=== PATIENT | male | born 1950 | race Caucasian/White ===

== ENCOUNTER → 2018-03-29 14:22 | Outpatient (POV) | payer MEDICARE, SELFPAY | PROVIDERS: Visit Provider Physician Assistant | DX: Z00.00 Encounter for general adult medical examination without abnormal findings (principal) ==

== ENCOUNTER → 2018-08-17 11:12 | Outpatient (POV) | payer MEDICARE, SELFPAY | PROVIDERS: Visit Provider Dermatology | DX: Z00.00 Encounter for general adult medical examination without abnormal findings (principal) ==

== ENCOUNTER → 2019-04-01 11:03 | Outpatient (CLI) | payer MEDICARE, SELFPAY ==
--- NOTE | 2019-04-01 11:12 | XR_ITS ---
XR chest 2V HISTORY: ITS.REASON: cough ORDERING PHYSICIAN: Christos Martinez APRN PATIENT AGE: 68 years COMPARISON: 10/27/2018 FINDINGS: The cardiomediastinal silhouette and pulmonary vascularity are within normal limits. Chronic interstitial changes are present as before. No lobar consolidation or collapse. No acute bony anomalies. There is a vague left perihilar nodular opacity at [address] for follow-up evaluation IMPRESSION: 1. Possible left perihilar nodule. Consider CT for further evaluation. 2. Chronic interstitial changes as before
[2019-04-01 11:26] LABS: Basophils # 0.1 K/mm3 (0-0.2); Basophils % 1.1 % (0.1-2.0); Eosinophils # 0.3 K/mm3 (0.0-0.4); Eosinophils % 3.6 % (0.1-12.0); Hematocrit 48.3 % (42.0-52.0); Hemoglobin 15.2 g/dL (14.1-18.0); Lymphocytes # 2.9 K/mm3 (0.7-4.5); Lymphocytes % 30.1 % (10-50); Mean Corpuscular HGB Conc 31.5 g/dL (31.8-35.4); Mean Corpuscular Hemoglobin 29.7 pg (27.0-31.2); Mean Corpuscular Volume 94.1 fl (80-94); Mean Platelet Volume 7.2 fl (7.4-10.4); Monocytes # 0.7 K/mm3 (0.1-1.0); Monocytes % 7.6 % (1.7-9.3); Neutrophils # 5.5 K/mm3 (1.8-7.8); Neutrophils % 57.7 % (37.0-80.0); Platelet Count 319 K/mm3 (142-424); Red Blood Count 5.13 M/mm3 (4.60-6.20); Red Cell Distribution Width 13.8 % (11.5-17.5); White Blood Count 9.6 K/mm3 (4.8-10.8)
[2019-04-01 14:16] LABS: Alanine Aminotransferase 26 U/L (12-78); Albumin Level 3.6 gm/dL (3.4-5.0); Albumin/Globulin Ratio 1.1 (1.1-1.8); Alkaline Phosphatase 107 U/L (46-116); Aspartate Amino Transferase 18 U/L (15-37); Bilirubin,Total 0.4 mg/dL (0.2-1.0); Blood Urea Nitrogen 15 mg/dL (7-18); Calcium 9.2 mg/dL (8.5-10.1); Carbon Dioxide 27 mmol/L (21.0-32.0); Chloride 100 mmol/L (98-107); Chol/HDL Ratio 4.6 (1-3.5); Cholesterol 196 mg/dL (140-200); Creatinine,Serum 1.06 mg/dL (0.70-1.30); Estimated Glomerular Filt Rate 70 ml/min (>60); GFR (African American) 85 ML/MIN (>60); Globulin 3.4 gm/dl (1.3-3.2); Glucose 102 mg/dL (74-106); HDL Cholesterol 43 mg/dL (27-67); LDL Cholesterol 137 mg/dL (0-130); Sodium 137 mmol/L (136-145); Thyroid Stimulating Hormone 13.13 uIU/ml (0.358-3.740); Triglycerides 80 mg/dL (30-200); VLDL Cholesterol 16 mg/dL (0-40)
[2019-04-03 21:39] LABS: PSA, Free 0.45 ng/mL; Prostate Specific Ag 1.9 ng/mL (0.0-4.0)
[2019-04-05 22:07] LABS: 1,25-Dihydroxy, Vitamin D-2 <10 pg/mL (.)
[2019-04-06 17:37] LABS: 1,25 Dihydroxy Vitamin D 15 pg/mL (.); 1,25-Dihydroxy, Vitamin D-3 15 pg/mL (.)
== END ==
PROVIDERS: Visit Provider Nurse Practitioner Family
DX: R53.83 Other fatigue (principal); E03.9 Hypothyroidism, unspecified; R09.89 Other specified symptoms and signs involving the circulatory and respiratory systems; Z86.39 Personal history of other endocrine, nutritional and metabolic disease
CPT/HCPCS: 36415; 71046; 80053; 80061; 82652; 84153; 84154; 84436; 84443; 85025

== ENCOUNTER → 2019-04-06 07:48 | Outpatient (CLI) | payer MEDICARE, SELFPAY ==
--- NOTE | 2019-04-06 07:54 | CT_ITS ---
CT chest wo con HISTORY: ITS.REASON: Abnormal CXR ORDERING PHYSICIAN: Christos Martinez APRN PATIENT AGE: 68 years COMPARISON: 04/01/2019. Technique: Axial images obtained. Sagittal, and coronal reformatted images are also generated and reviewed. All CT scans at the facility use one or more dose reduction, viz: automated exposure control, ma/kV adjustment per patient size (including targeted exams where dose is matched to indication, i.e. head), or iterative reconstruction technique. FINDINGS: Airways are patent without pleural effusion or pneumothorax. There are moderate lucent changes throughout the lung villalba bilaterally with areas of bleb formation especially in both upper lobes as well as in the periphery of the left upper lobe and posterior base of the right upper lobe adjacent to the major fissure. There is associated interstitial prominence which is diffuse and bilaterally present. Superior segment left lower lobe shows a 10 mm noncalcified nodule. Image #60 shows a 6.4 mm subpleural lateral segment right middle lobe noncalcified nodule. Image #43 shows a left upper lobe somewhat linear 7.5 mm noncalcified density. There are a few strands of increased density in the posterior right apex. There is a right apical benign calcified granuloma. There is slight prominence of the anterior pericardium likely pericardial thickening. Heart size is normal. There are aortic arch and coronary artery calcified plaques. There are some calcified and noncalcified mediastinal lymph nodes and the noncalcified lymph nodes are small less than 10 mm in short axis diameter. There are some fatty benign appearing axillary lymph nodes bilaterally. Upper abdomen shows a partially visualized 2.6 cm hypodense focus in the right renal sinus. This is not completely imaged. IMPRESSION: Multiple noncalcified nodular densities, largest in the left lower lobe is 10 mm. Biopsy could be considered although there is a high risk for pneumothorax. Therefore consider either short-term 3 month follow-up CT of the chest or preferably a PET/CT scan. COPD with nonspecific interstitial prominence likely fibrosis. Posterior right apical linear scar or atelectasis. Partially visualized nonspecific right renal lesion, indeterminate although likely a cyst.
== END ==
PROVIDERS: PCP Nurse Practitioner Family; Visit Provider Nurse Practitioner Family
DX: R93.89 Abnormal findings on diagnostic imaging of other specified body structures (principal)
CPT/HCPCS: 71250

== ENCOUNTER → 2019-05-04 10:58 | Outpatient (CLI) | payer MEDICARE, SELFPAY ==
[2019-05-04 12:20] VITALS: PULSE 50; PULSE 56
== END ==
PROVIDERS: PCP Emergency Medicine; Visit Provider Internal Medicine Pulmonary Disease
DX: R91.8 Other nonspecific abnormal finding of lung field (principal); J43.9 Emphysema, unspecified; Z87.891 Personal history of nicotine dependence
CPT/HCPCS: 94060; 94640; 94726; 94729

== ENCOUNTER → 2019-08-23 10:01 | Outpatient (POV) | payer MEDICARE, SELFPAY | PROVIDERS: PCP Dermatology; Visit Provider Dermatology | DX: Z00.00 Encounter for general adult medical examination without abnormal findings (principal) ==

== ENCOUNTER → 2020-03-12 15:02 | Outpatient (CLI) | payer MEDICARE, SELFPAY ==
[2020-03-12 20:49] LABS: Coronavirus 19 IgG Antibody Negative (Negative); Coronavirus 19 IgM Antibody Negative (Negative)
== END ==
PROVIDERS: Visit Provider Otolaryngology
DX: R05 Cough (principal); Z01.84 Encounter for antibody response examination
CPT/HCPCS: 36415; 86328

== ENCOUNTER → 2020-03-26 14:29 | Outpatient (CLI) | payer MEDICARE, SELFPAY ==
--- NOTE | 2020-03-26 14:30 | CT_ITS ---
PROCEDURE: CT SINUS WO CON CLINICAL HISTORY: sinusitis COMPARISON: No exams were available for comparison TECHNIQUE: Axial images obtained with sagittal and coronal reformats. All CT scans at the facility use one or more dose reduction, viz: automated exposure control, ma/kV adjustment per patient size (including targeted exams where dose is matched to indication, i.e. head), or iterative reconstruction technique. FINDINGS: Frontal sinus is unremarkable. There is mild mucosal thickening of the ethmoid sinuses. Minimal mucosal thickening is present in the floor of the maxillary sinuses. No sinus air-fluid level or soft tissue mass. Sphenoid sinus has an unremarkable appearance. There is mild opacification involving the inferior aspect of the mastoid sinuses on both sides. The orbits have an unremarkable appearance. No significant nasal septal deviation. Ostiomeatal units are patent. The IMPRESSION: No evidence of acute sinusitis. There is minimal mucosal thickening of the ethmoid sinuses and minimal opacification of the mastoid sinuses. Dictated by: Bj Swann MD 03/27/2020 12:36 Electronically signed by Bj Swann MD in [facility] 03/27/2020 12:36
== END ==
PROVIDERS: PCP Emergency Medicine; Visit Provider Otolaryngology
DX: J32.0 Chronic maxillary sinusitis (principal); R42 Dizziness and giddiness
CPT/HCPCS: 70486

== ENCOUNTER → 2020-04-30 14:28 | Outpatient (CLI) | payer MEDICARE, SELFPAY ==
[2020-04-30 16:51] LABS: Coronavirus 19 IgG Antibody Negative (Negative); Coronavirus 19 IgM Antibody Negative (Negative)
== END ==
PROVIDERS: Visit Provider Otolaryngology
DX: R09.82 Postnasal drip (principal); Z20.828 Contact with and (suspected) exposure to other viral communicable diseases
CPT/HCPCS: 36415; 86328

== ENCOUNTER → 2020-06-07 14:22 | Outpatient (CLI) | payer MEDICARE, SELFPAY ==
--- NOTE | 2020-06-07 14:25 | CT_ITS ---
PROCEDURE: CT CHEST WO CON CLINICAL INDICATION: F/U LUNG NODULES Follow up, lung nodules Prior 04/06/19 COMPARISON: CT CHESTWO CT chest wo con from 04/06/2019 TECHNIQUE: Axial images obtained with sagittal and coronal reformats. All CT scans at the facility use one or more dose reduction, viz: automated exposure control, ma/kV adjustment per patient size (including targeted exams where dose is matched to indication, i.e. head), or iterative reconstruction technique. FINDINGS: HEART AND MEDIASTINAL STRUCTURES: Calcified nodes are present in the mediastinum. There are noncalcified nodes also present with which are less than 1 cm short axis. There are coronary artery calcifications. LUNGS AND PLEURAL SPACES: Centrilobular emphysema with changes of COPD. Scattered areas of scarring. There are scattered subpleural and parenchymal nodular opacities as previously described. These appear stable. There is mild prominence of the right hilum suggesting some mild adenopathy probably not significantly changed somewhat difficult to evaluate without IV contrast. Noncalcified 10 mm nodules present in the superior segment left lower lobe and is unchanged. No change 6 mm subpleural nodule right middle lobe. No change fissural nodule in the right minor fissure at 9 mm. No new nodular opacities apparent. There are some areas of pulmonary fibrosis noted. BONY STRUCTURES: No acute bony abnormalities apparent. UPPER ABDOMEN: Unremarkable. ADDITIONAL FINDINGS: Gynecomastia IMPRESSION: Stable CT appearance of the chest. No change in the noncalcified nodular lesions, COPD, centrilobular emphysema with scattered areas of scarring and mild prominence of the right hilum. Dictated by: Bj Swann MD 06/08/2020 08:16 Bj Swann MD in [facility] 06/08/2020 08:16
== END ==
PROVIDERS: PCP Emergency Medicine; Visit Provider Internal Medicine Pulmonary Disease
DX: R91.1 Solitary pulmonary nodule (principal)
CPT/HCPCS: 71250

== ENCOUNTER → 2020-07-24 08:58 | Outpatient (POV) | payer MEDICARE, SELFPAY | PROVIDERS: Visit Provider Dermatology | DX: Z00.00 Encounter for general adult medical examination without abnormal findings (principal) ==

== ENCOUNTER 2020-07-24 09:27 | Emergency (ER) | payer MEDICARE, SELFPAY ==
[2020-07-24 09:45] VITALS: BP 144/74; PULSE 66; RESP 18; TEMP 36.6; O2SAT 98; BMI 26.8
[2020-07-24 09:57] VITALS: BP 144/74; PULSE 66; RESP 18; TEMP 36.6; O2SAT 98
== END 2020-07-24 10:02 | disposition home or self-care (01) ==
LOC: UTC 09:28
PROVIDERS: Emergency Provider Nurse Practitioner; PCP Nurse Practitioner Family
DX: Z23 Encounter for immunization (principal)
CPT/HCPCS: 90471

== ENCOUNTER → 2020-12-26 17:14 | Outpatient (CLI) | payer MEDICARE, SELFPAY ==
[2020-12-26 18:07] LABS: Basophils # 0.1 K/mm3 (0-0.2); Eosinophils # 0.3 K/mm3 (0.0-0.4); Eosinophils % 3.1 % (0.1-12.0); Hematocrit 46.1 % (42.0-52.0); Hemoglobin 14.9 g/dL (14.1-18.0); Lymphocytes # 2.9 K/mm3 (0.7-4.5); Lymphocytes % 30.2 % (10-50); Mean Corpuscular HGB Conc 32.3 g/dL (31.8-35.4); Mean Corpuscular Hemoglobin 30.8 pg (27.0-31.2); Mean Corpuscular Volume 95.3 fl (80-94); Monocytes # 0.7 K/mm3 (0.1-1.0); Monocytes % 7.2 % (1.7-9.3); Neutrophils # 5.6 K/mm3 (1.8-7.8); Neutrophils % 58.5 % (37.0-80.0); Platelet Count 381 K/mm3 (142-424); Red Blood Count 4.84 M/mm3 (4.60-6.20); White Blood Count 9.5 K/mm3 (4.8-10.8)
[2020-12-26 18:24] LABS: Chloride 102 mmol/L (98-107)
[2020-12-26 18:25] LABS: Potassium 4.8 mmoL/L (3.5-5.1); Sodium 135 mmol/L (136-145)
[2020-12-26 18:27] LABS: Alanine Aminotransferase 17 U/L (12-78); Alkaline Phosphatase 113 U/L (38-126); Anion Gap 14.8 mEq/L (5-15); Aspartate Amino Transferase 27 U/L (17-59); Bilirubin,Total 0.6 mg/dl (0.2-1.3); Blood Urea Nitrogen 15 mg/dl (9-20); Carbon Dioxide 23 mmol/L (22.0-30.0); Cholesterol 233 mg/dl (140-200); Estimated Glomerular Filt Rate 74 ml/min (>60); GFR (African American) 90 ML/MIN (>60); Triglycerides 98 mg/dl (30-150); VLDL Cholesterol 20 mg/dL (0-40)
[2020-12-26 18:28] LABS: Albumin Level 4.4 g/dl (3.5-5.0); Albumin/Globulin Ratio 1.3 (1.1-1.8); Calcium 9.9 mg/dl (8.4-10.2); Chol/HDL Ratio 4.1 (1-3.5); Globulin 3.5 g/dL (1.3-3.2); Glucose 109 mg/dl (74-100); HDL Cholesterol 57 mg/dl (40-60); Total Protein,Serum 7.9 g/dl (6.3-8.2)
[2020-12-26 18:45] LABS: 25-OH Vitamin D, Total 62.7 ng/mL (30-100); Free T4 (Free Thyroxine) 1.63 ng/dl (0.78-2.19)
[2020-12-26 19:43] LABS: Direct LDL Cholesterol 160.49 mg/dL (100-129)
[2020-12-26 20:22] LABS: Vitamin B12 283 pg/mL (239-931)
[2020-12-28 13:00] LABS: Prostate Specific Ag 2.2 ng/mL (0.0-4.0)
== END ==
PROVIDERS: Visit Provider Nurse Practitioner Family
DX: Z00.00 Encounter for general adult medical examination without abnormal findings; E03.9 Hypothyroidism, unspecified; J32.9 Chronic sinusitis, unspecified; E55.9 Vitamin D deficiency, unspecified
CPT/HCPCS: 80053; 80061; 82306; 82607; 84153; 84154; 84439; 84443; 85025

== ENCOUNTER → 2021-02-27 13:39 | Outpatient (CLI) | payer MEDICARE, SELFPAY ==
[2021-02-27 13:57] LABS: Anion Gap 13.6 mEq/L (5-15); Blood Urea Nitrogen 12 mg/dl (9-20); Calcium 9.1 mg/dl (8.4-10.2); Carbon Dioxide 25 mmol/L (22.0-30.0); Chloride 99 mmol/L (98-107); Estimated Glomerular Filt Rate 74 ml/min (>60); GFR (African American) 90 ML/MIN (>60); Glucose 100 mg/dl (74-100); Potassium 4.6 mmoL/L (3.5-5.1); Sodium 133 mmol/L (136-145)
[2021-02-27 14:15] LABS: T4 (Thyroxine) 11.3 ug/dl (5.53-11.0)
[2021-02-27 14:28] LABS: Thyroid Stimulating Hormone 7.45 uIU/mL (0.465-4.68)
== END ==
PROVIDERS: Visit Provider Nurse Practitioner Family
DX: E03.9 Hypothyroidism, unspecified (principal)
CPT/HCPCS: 80048; 84436; 84443

== ENCOUNTER → 2021-06-10 15:25 | Outpatient (CLI) | payer MEDICARE, SELFPAY ==
--- NOTE | 2021-06-10 15:26 | CT_ITS ---
PROCEDURE: CT CHEST WO CON CLINICAL INDICATION: Shortness of air, productive cough COMPARISON: CT CT CHEST WO CON from 06/07/2020 TECHNIQUE: Axial images obtained with sagittal and coronal reformats. All CT scans at the facility use one or more dose reduction, viz: automated exposure control, ma/kV adjustment per patient size (including targeted exams where dose is matched to indication, i.e. head), or iterative reconstruction technique. FINDINGS: Scattered small nodes are present in the mediastinum some of which are calcified. These do not appear significantly changed. Calcified hilar nodes are also present. Coronary artery calcifications are noted. Small nodes are present in the axilla unchanged. The right hilum is prominent as before not significantly changed. COPD changes with centrilobular emphysema and scattered fibrotic changes. There are bilateral stable subpleural and fissural nodules. There is a 10 mm nodule in the superior segment of the left lower lobe which is stable. There are scattered fibrotic changes. Incidental note made of gynecomastia. Degenerative changes thoracic spine. IMPRESSION: Overall stable CT appearance of the chest. Centrilobular emphysema with scattered fibrotic changes and stable subpleural and parenchymal opacities. No change in the 10 mm left upper lobe nodule. Dictated by: Bj Swann MD 06/11/2021 11:34 Bj Swann MD in [facility] 06/11/2021 11:34
== END ==
PROVIDERS: PCP Nurse Practitioner Family; Visit Provider Internal Medicine Pulmonary Disease
DX: R06.02 Shortness of breath (principal)
CPT/HCPCS: 71250

== ENCOUNTER 2021-06-14 10:49 | Emergency (ER) | payer MEDICARE, SELFPAY ==
[2021-06-14 11:50] VITALS: BP 175/81; PULSE 74; RESP 18; TEMP 36.7; O2SAT 94; BMI 27.2
--- NOTE | 2021-06-14 12:28 | HMH.EDUTC ---
[facility] [place] Clinical Impression: Contact dermatitis Qualifiers: Contact dermatitis type: unspecified Contact dermatitis trigger: unspecified trigger Qualified Code(s): L25.9 - Unspecified contact dermatitis, unspecified cause Disposition: Home, Self-Care Condition on Discharge: Good Instructions: Contact Dermatitis, DI for Contact Dermatitis Additional Instructions: Try to avoid contact with the offending substance. Don't start the oral steroids until tomorrow. Don't put the topical steroids (triamcinolone) on your face or your groin. Take the diphenhydramine (benedryl) for itching. Don't drive or operate heavy machinery after taking it. Follow up with your regular doctor. GO TO THE ER FOR ANY WORSENING SYMPTOMS OR CONCERNS Prescriptions: diphenhydrAMINE HCL [Diphenhydramine HCl] 25 mg PO Q6HP PRN #30 cap PRN Reason: Itching Transmission Status: Received by [facility] methylPREDNISolone [Medrol] 4 mg PO DIRECTED 6 Days #21 packet Transmission Status: Received by [facility] Triamcinolone Acetonide 1 applicatio TP TIDP PRN 7 Days #1 gm PRN Reason: Itching Transmission Status: Received by [facility] Referrals: Christos Martinez APRN [Primary Care Provider] - Time of Disposition: 12:55 Medical Decision Making - Medical Records Medical records reviewed: No: I reviewed the patient's medical records. - [place] Inquiry Pt receiving controlled substance: No Vital Signs: 06/14/21 11:50 06/14/21 12:39 Temperature 98.1 F 98.1 F Temperature Source Oral Pulse Rate 74 Pulse Rate [Left Radial] 74 Respiratory Rate 18 18 Blood Pressure 175/81 H Blood Pressure [Left Arm] 175/81 H Blood Pressure Mean [Left Arm] 112 Blood Pressure Source [Left Arm] Automatic Cuff Blood Pressure Position [Left Arm] Sitting 02 Sat by Pulse Oximetry 94 L Oxygen Delivery Method Room Air Orders (Tests/Meds): ED MEDICATIONS Discontinued Medications Generic Name Dose Route Start Last Admin Trade Name Freq PRN Reason Stop Dose Admin Methylprednisolone Sodium Succinate 125 mg 06/14/21 12:33 06/14/21 12:37 Methylprednisolone Sod Succ 125mg Vial IM 06/14/21 12:34 125 mg ONCE ONE Administration [facility] [place] - General Stated complaint: rash all over body Time Seen by Provider: 06/14/21 12:29 Mode of Arrival: Ambulatory Source of Information: Patient Limitations: No Limitations Description of Symptoms (Recalled from Triage Doc. by RN): c/o body rash HEENT Symptoms (Recalled from RN notes): No Resp Symptoms (Recalled from RN notes): No Skin Symptoms (Recalled from RN notes): Yes (rash) MS Symptoms (Recalled from RN notes): No Functional Status (Recalled from RN notes): n/a - History of Present Illness Provider Complaint: He states that since last night he has had a rash on his back, lower abdomen, and back. - Related Data Home Medications Medication Instructions Recorded Confirmed cholecalciferol (vitamin D3) 25 1,000 unit PO DAILY 03/31/19 06/13/21 mcg (1,000 unit) capsule mecobalamin (vitamin B12) 1,000 2,000 mcg SUBLINGUAL DAILY tab 03/31/19 06/13/21 mcg disintegrating tablet,sublingual melatonin 10 mg capsule 10 mg PO HS PRN 06/12/20 06/13/21 Previous Rx's Medication Instructions Recorded cholecalciferol (vitamin D3) 1,250 50,000 unit PO QWEEK #5 cap 04/07/19 mcg (50,000 unit) capsule levothyroxine 112 mcg tablet See Rx Instructions .ROUTE 12/26/20 .COMPLEX #90 tab loratadine 10 mg tablet 10 mg PO DAILY 30 Days #30 tab 12/26/20 albuterol sulfate 90 mcg/actuation 1 inh INHALATION Q6H PRN 90 Days 06/13/21 aerosol inhaler #8.5 g fluticasone propionate 50 1 spray INTRANASAL DAILY 90 Days 06/13/21 mcg/actuation nasal #16 g spray,suspension tiotropium bromide 2.5 2 inh INHALATION DAILY 90 Days #4 g 06/13/21 mcg/actuation mist for inhalation Triamcinolone Acetonide 1 applicatio TP TIDP PRN 7 Days #1
[2021-06-14 12:39] VITALS: BP 175/81; PULSE 74; RESP 18; TEMP 36.7; O2SAT 94
== END 2021-06-14 13:05 | disposition home or self-care (01) ==
PROVIDERS: Emergency Provider Student in an Organized Health Care Education/Training Program; PCP Nurse Practitioner Family
DX: L25.9 Unspecified contact dermatitis, unspecified cause (principal); E03.9 Hypothyroidism, unspecified
CPT/HCPCS: G0463; 96372; 99202

== ENCOUNTER → 2021-09-16 12:47 | Outpatient (CLI) | payer MEDICARE, SELFPAY ==
[2021-09-16 13:55] VITALS: PULSE 73; PULSE 78
== END ==
PROVIDERS: PCP Nurse Practitioner Family; Visit Provider Internal Medicine Pulmonary Disease
DX: R06.09 Other forms of dyspnea (principal)
CPT/HCPCS: 94060; 94640; 94727; 94729

== ENCOUNTER → 2021-12-24 12:00 | Outpatient (CLI) | payer MEDICARE, SELFPAY ==
--- NOTE | 2021-12-24 12:07 | XR_ITS ---
FINAL REPORT CLINICAL HISTORY: Pain..no trauma FINDINGS: 2 views of the right forearm were obtained. There is no acute fracture or dislocation. There are mild degenerative changes. There is no soft tissue abnormality. IMPRESSION: No acute abnormality. Reviewed, Interpreted and Dictated by Vinicius Mcclain III, MD Transcribed by Delta Johnson Authenticated by Vinicius Mcclain III, MD on 12/24/2021 01:41:20 PM [facility]
--- NOTE | 2021-12-24 12:07 | XR_ITS ---
FINAL REPORT CLINICAL HISTORY: RFA Pain,,no trauma FINDINGS: 3 views of the right wrist were obtained. There is no acute fracture or dislocation. There are mild degenerative changes. There is no soft tissue abnormality. IMPRESSION: Mild degenerative changes. Reviewed, Interpreted and Dictated by Vinicius Mcclain III, MD Transcribed by Delta Johnson Authenticated by Vinicius Mcclain III, MD on 12/24/2021 01:41:31 PM [facility]
[2021-12-24 13:21] LABS: Basophils # 0.1 K/mm3 (0-0.2); Basophils % 1.5 % (0.1-2.0); Eosinophils # 0.4 K/mm3 (0.0-0.4); Lymphocytes # 2.7 K/mm3 (0.7-4.5); Lymphocytes % 28.8 % (10-50); Mean Corpuscular HGB Conc 31.3 g/dL (31.8-35.4); Mean Corpuscular Volume 99.1 fl (80-94); Monocytes # 0.6 K/mm3 (0.1-1.0); Monocytes % 6.8 % (1.7-9.3); Neutrophils # 5.5 K/mm3 (1.8-7.8); Platelet Count 427 K/mm3 (142-424); Red Blood Count 4.85 M/mm3 (4.60-6.20); Red Cell Distribution Width 14.3 % (11.5-17.5); White Blood Count 9.3 K/mm3 (4.8-10.8)
[2021-12-24 14:01] LABS: Erythrocyte Sedimentation Rate 47 mm/hr (0-20)
[2021-12-24 14:21] LABS: Chloride 97 mmol/L (98-107); Potassium 4.9 mmoL/L (3.5-5.1); Sodium 135 mmol/L (136-145)
[2021-12-24 14:23] LABS: Blood Urea Nitrogen 14 mg/dl (9-20); Estimated Glomerular Filt Rate 74 ml/min (>60); GFR (African American) 90 ML/MIN (>60)
[2021-12-24 14:24] LABS: Alanine Aminotransferase 20 U/L (12-78); Albumin Level 4.2 g/dl (3.5-5.0); Albumin/Globulin Ratio 1.4 (1.1-1.8); Alkaline Phosphatase 94 U/L (38-126); Anion Gap 12.9 mEq/L (5-15); Aspartate Amino Transferase 25 U/L (17-59); Bilirubin,Total 0.6 mg/dl (0.2-1.3); Carbon Dioxide 30 mmol/L (22.0-30.0); Globulin 2.9 g/dL (1.3-3.2); Glucose 85 mg/dl (74-100); Total Protein,Serum 7.1 g/dl (6.3-8.2)
== END ==
PROVIDERS: PCP Nurse Practitioner Family; Visit Provider Nurse Practitioner Family
DX: M25.531 Pain in right wrist (principal)
CPT/HCPCS: 73090; 73110; 80053; 84550; 85025; 85651

== ENCOUNTER → 2022-03-19 06:14 | Outpatient (CLI) | payer MEDICARE, SELFPAY ==
[2022-03-18 17:44] LABS: Basophils # 0.1 K/mm3 (0-0.2); Basophils % 1.3 % (0.1-2.0); Eosinophils # 0.3 K/mm3 (0.0-0.4); Eosinophils % 3.1 % (0.1-12.0); Hematocrit 47.3 % (42.0-52.0); Hemoglobin 15.6 g/dL (14.1-18.0); Lymphocytes # 2.3 K/mm3 (0.7-4.5); Mean Corpuscular Hemoglobin 31.7 pg (27.0-31.2); Mean Corpuscular Volume 96.3 fl (80-94); Monocytes # 0.8 K/mm3 (0.1-1.0); Monocytes % 7.7 % (1.7-9.3); Neutrophils # 6.4 K/mm3 (1.8-7.8); Neutrophils % 64.8 % (37.0-80.0); Platelet Count 397 K/mm3 (142-424); Red Blood Count 4.91 M/mm3 (4.60-6.20); Red Cell Distribution Width 14.1 % (11.5-17.5); White Blood Count 9.9 K/mm3 (4.8-10.8)
[2022-03-18 18:06] LABS: Alanine Aminotransferase 17 U/L (12-78); Albumin Level 4.1 g/dl (3.5-5.0); Albumin/Globulin Ratio 1.2 (1.1-1.8); Alkaline Phosphatase 102 U/L (38-126); Anion Gap 12.7 mEq/L (5-15); Aspartate Amino Transferase 34 U/L (17-59); Bilirubin,Total 0.4 mg/dl (0.2-1.3); Blood Urea Nitrogen 13 mg/dl (9-20); Calcium 9.3 mg/dl (8.4-10.2); Carbon Dioxide 23 mmol/L (22.0-30.0); Chloride 98 mmol/L (98-107); Estimated Glomerular Filt Rate 84 ml/min (>60); GFR (African American) 101 ML/MIN (>60); Globulin 3.4 g/dL (1.3-3.2); Glucose 107 mg/dl (74-100); Potassium 4.7 mmoL/L (3.5-5.1); Sodium 129 mmol/L (136-145); Total Protein,Serum 7.5 g/dl (6.3-8.2)
[2022-03-18 18:07] LABS: Erythrocyte Sedimentation Rate 19 mm/hr (0-20)
[2022-03-18 18:12] LABS: C-Reactive Protein 14.1 mg/L (0-4)
[2022-03-20 08:22] LABS: RA Latex Turbid. 19.9 IU/mL (<14.0)
[2022-03-20 14:34] LABS: Anti-Centromere B Antibodies <0.2 AI (0.0-0.9); Anti-DNA (DS) Ab Qn <1 IU/mL (0-9); Anti-Jo-1 <0.2 AI (0.0-0.9); Anti-Smith Antibody <0.2 AI (0.0-0.9); Antichromatin Antibodies <0.2 AI (0.0-0.9); Antiscleroderma-70 Antibodies <0.2 AI (0.0-0.9); RNP Antibodies 1.9 AI (0.0-0.9); Sjogren's Anti-SS-A <0.2 AI (0.0-0.9); Sjogren's Anti-SS-B 0.2 AI (0.0-0.9)
== END ==
PROVIDERS: PCP Nurse Practitioner Family; Visit Provider Nurse Practitioner Family
DX: R60.0 Localized edema (principal); M79.641 Pain in right hand; M79.642 Pain in left hand
CPT/HCPCS: 80053; 85025; 85651; 86140; 86225; 86235; 86431

== ENCOUNTER → 2022-06-18 14:41 | Outpatient (CLI) | payer MEDICARE, SELFPAY ==
--- NOTE | 2022-06-18 14:41 | CT_ITS ---
FINAL REPORT TECHNIQUE: Axial images were obtained from the lung apex to the mid abdomen by computed tomography. This study was performed with techniques to keep radiation doses as low as reasonably achievable (ALARA). Individualized dose reduction techniques using automated exposure control or adjustment of mA and/or kV according to the patient's size were employed. CLINICAL HISTORY: lung cancer screening, PREVIOUS SMOKER , 1 PPD FOR 50 YEARS, QUIT 5 YEARS AGO COMPARISON: 06/10/2021 and 06/07/2020 FINDINGS: CHEST CT LOW DOSE CTDI vol (mGy): 2.90 DLP (mGy-cm): 111.25 There are small mediastinal nodes. There are calcified mediastinal and right hilar nodes. There is diffuse coronary artery calcification. Multiple borderline size axillary nodes are identified. The heart is normal in size. There is no pericardial or pleural effusion. There is severe emphysema. Moderate scarring is identified. There is a 10 mm nodule in the superior segment of the left lower lobe, stable. There is a pleural base nodule in the right middle lobe measuring 8 mm, previously measured 8 mm. Several other smaller nodules are seen, stable. No new mass or nodule is identified Limited images of the upper abdomen are unremarkable. IMPRESSION: Stable multiple pulmonary nodules. Severe emphysema. Lung RADS category 1. Recommend 12 month follow-up low-dose chest CT. Reviewed, Interpreted and Dictated by Vinciius Mcclain III, MD Transcribed by Merissa Centeno Authenticated and [facility]
== END ==
PROVIDERS: PCP Nurse Practitioner Family; Visit Provider Internal Medicine Pulmonary Disease
DX: Z87.891 Personal history of nicotine dependence (principal); Z12.2 Encounter for screening for malignant neoplasm of respiratory organs
CPT/HCPCS: 71271

== ENCOUNTER → 2022-07-17 09:21 | Outpatient (CLI) | payer MEDICARE, SELFPAY ==
[2022-07-17 10:10] LABS: Microscopic, Urine URINE MICROSCOPIC (MICROSCOPIC)
[2022-07-17 10:42] LABS: Appearance,Urine CLEAR (Clear); Bilirubin,Urine Negative (Negative); Blood, Urine Negative (Negative); Color,Urine YELLOW (Yellow); Glucose,Urine (UA) Negative (Negative); Ketones,Urine Negative (Negative); Leukocyte Esterase,Urine Negative (Negative); Nitrate,Urine Negative (Negative); Protein,Urine Negative (Negative); Specific Gravity, Urine <= 1.005 (1.005-1.030); Urobilinogen,Urine 0.2 EU/dl (0.2)
[2022-07-17 10:46] LABS: Basophils # 0.2 K/mm3 (0-0.2); Eosinophils # 0.3 K/mm3 (0.0-0.4); Eosinophils % 3.5 % (0.1-12.0); Hematocrit 48.1 % (42.0-52.0); Hemoglobin 15.5 g/dL (14.1-18.0); Lymphocytes # 1.4 K/mm3 (0.7-4.5); Lymphocytes % 19.2 % (10-50); Mean Corpuscular HGB Conc 32.2 g/dL (31.8-35.4); Mean Corpuscular Hemoglobin 30.6 pg (27.0-31.2); Mean Platelet Volume 7.7 fl (7.4-10.4); Monocytes # 0.5 K/mm3 (0.1-1.0); Monocytes % 6.6 % (1.7-9.3); Neutrophils # 5.1 K/mm3 (1.8-7.8); Neutrophils % 68.6 % (37.0-80.0); Platelet Count 363 K/mm3 (142-424); Red Blood Count 5.07 M/mm3 (4.60-6.20); White Blood Count 7.5 K/mm3 (4.8-10.8)
[2022-07-17 11:00] LABS: Creatinine,Urine Random 19 mg/dL (Not Estab.)
[2022-07-17 11:13] LABS: Alanine Aminotransferase 25 U/L (12-78); Alkaline Phosphatase 137 U/L (38-126); Aspartate Amino Transferase 40 U/L (17-59); Bilirubin,Direct 0.1 mg/dl (0.0-0.4); Bilirubin,Indirect 0.1 mg/dL (0.0-0.9); Bilirubin,Total 0.2 mg/dl (0.2-1.3); Bilirubin,Unconjugated 0.1 mg/dL (0.0-1.1); Estimated Glomerular Filt Rate 83 ml/min (>60); GFR (African American) 101 ML/MIN (>60)
[2022-07-17 11:14] LABS: Albumin Level 4.1 g/dl (3.5-5.0); Total Protein,Serum 7.5 g/dl (6.3-8.2)
[2022-07-17 11:19] LABS: C-Reactive Protein 14.7 mg/L (0-4)
[2022-07-17 11:51] LABS: Squamous Epithelial Cell,Urine Occasional #/hpf (0-5)
[2022-07-17 11:53] LABS: Erythrocyte Sedimentation Rate 14 mm/hr (0-20)
[2022-07-18 08:16] LABS: Complement C3 135 mg/dL (82-167); RA Latex Turbid. 35.1 IU/mL (<14.0)
[2022-07-18 17:12] LABS: Anti-DNA (DS) Ab Qn <1 IU/mL (0-9); Antiscleroderma-70 Antibodies <0.2 AI (0.0-0.9); Smith/RNP Antibodies <0.2 AI (0.0-0.9)
[2022-07-19 00:07] LABS: Anti-Cyclic Citrullinated Pept >250 units (0-19)
[2022-07-19 20:08] LABS: QuantiFERON-TB Gold Plus Negative (Negative)
[2022-08-07 12:43] LABS: Hep A Ab, IgM NEGATIVE; Hepatitis B Core Antibody IgM NEGATIVE; Hepatitis B Surface Antigen NEGATIVE; Hepatitis C Antibody <0.1
[2022-08-07 12:46] LABS: Antinuclear Antibodies, IFA POSITIVE
== END ==
PROVIDERS: PCP Nurse Practitioner Family; Visit Provider Physician Assistant
DX: R94.5 Abnormal results of liver function studies (principal); Z79.899 Other long term (current) drug therapy
CPT/HCPCS: 36415; 80074; 80076; 81001; 82565; 82570; 84155; 85025; 85651; 86038; 86140; 86161; 86200; 86225; 86235; 86431; 86480

== ENCOUNTER → 2022-09-16 09:48 | Outpatient (POV) | payer MEDICARE, SELFPAY | PROVIDERS: Visit Provider Dermatology | DX: Z00.00 Encounter for general adult medical examination without abnormal findings (principal) ==

== ENCOUNTER 2022-10-30 09:43 | Outpatient (CLI) | payer MEDICARE, SELFPAY ==
[2022-10-30] VITALS (17 sets, daily range): BP systolic 129–179; BP diastolic 54–85; PULSE 65–76; RESP 18; TEMP 36.6; O2SAT 95; BMI 26.8
[2022-10-30 10:10] LABS: Basophils # 0.1 K/mm3 (0-0.2); Basophils % 1.5 % (0.1-2.0); Eosinophils # 0.5 K/mm3 (0.0-0.4); Eosinophils % 4.9 % (0.1-12.0); Hematocrit 43.9 % (42.0-52.0); Hemoglobin 14.1 g/dL (14.1-18.0); Lymphocytes # 2.6 K/mm3 (0.7-4.5); Lymphocytes % 27.5 % (10-50); Mean Corpuscular HGB Conc 32.1 g/dL (31.8-35.4); Mean Corpuscular Hemoglobin 30.1 pg (27.0-31.2); Mean Corpuscular Volume 93.8 fl (80-94); Mean Platelet Volume 7.2 fl (7.4-10.4); Monocytes # 0.8 K/mm3 (0.1-1.0); Monocytes % 8.1 % (1.7-9.3); Neutrophils # 5.5 K/mm3 (1.8-7.8); Neutrophils % 57.9 % (37.0-80.0); Platelet Count 431 K/mm3 (142-424); Red Blood Count 4.68 M/mm3 (4.60-6.20); Red Cell Distribution Width 14.2 % (11.5-17.5); White Blood Count 9.4 K/mm3 (4.8-10.8)
== END 2022-10-30 15:00 | disposition home or self-care (01) ==
LOC: INF 09:45
PROVIDERS: PCP Nurse Practitioner Family; Visit Provider Physician Assistant
DX: M05.79 Rheumatoid arthritis with rheumatoid factor of multiple sites without organ or systems involvement
CPT/HCPCS: 85025; 96413; 96415; J9312

== ENCOUNTER 2022-11-14 09:39 | Outpatient (CLI) | payer MEDICARE, SELFPAY ==
[2022-11-14] VITALS (14 sets, daily range): BP systolic 156–187; BP diastolic 66–90; PULSE 63–76; RESP 18; TEMP 36.3–36.6; O2SAT 99–100; BMI 26.8
[2022-11-14 10:02] LABS: Basophils # 0.1 K/mm3 (0-0.2); Basophils % 1.5 % (0.1-2.0); Eosinophils # 0.4 K/mm3 (0.0-0.4); Eosinophils % 5.6 % (0.1-12.0); Hematocrit 45.1 % (42.0-52.0); Hemoglobin 14.7 g/dL (14.1-18.0); Lymphocytes # 2.1 K/mm3 (0.7-4.5); Lymphocytes % 26.7 % (10-50); Mean Corpuscular HGB Conc 32.5 g/dL (31.8-35.4); Mean Corpuscular Hemoglobin 30.3 pg (27.0-31.2); Mean Corpuscular Volume 93.2 fl (80-94); Mean Platelet Volume 6.6 fl (7.4-10.4); Monocytes # 0.6 K/mm3 (0.1-1.0); Monocytes % 8.2 % (1.7-9.3); Neutrophils # 4.5 K/mm3 (1.8-7.8); Neutrophils % 57.9 % (37.0-80.0); Platelet Count 333 K/mm3 (142-424); Red Blood Count 4.84 M/mm3 (4.60-6.20); Red Cell Distribution Width 13.8 % (11.5-17.5); White Blood Count 7.7 K/mm3 (4.8-10.8)
== END 2022-11-14 14:00 | disposition home or self-care (01) ==
LOC: INF 09:39
PROVIDERS: PCP Nurse Practitioner Family; Visit Provider Physician Assistant
DX: Z51.12 Encounter for antineoplastic immunotherapy (principal); M05.79 Rheumatoid arthritis with rheumatoid factor of multiple sites without organ or systems involvement
CPT/HCPCS: 85025; 96413; 96415; J9312

== ENCOUNTER → 2023-02-10 09:41 | Outpatient (CLI) | payer MEDICARE, SELFPAY ==
[2023-02-10 10:15] VITALS: PULSE 63; PULSE 70
== END ==
PROVIDERS: PCP Nurse Practitioner Family; Visit Provider Internal Medicine Pulmonary Disease
DX: R06.02 Shortness of breath (principal)
CPT/HCPCS: 94060; 94640

== ENCOUNTER 2023-05-21 08:46 | Outpatient (CLI) | payer MEDICARE, SELFPAY ==
[2023-05-21] VITALS (11 sets, daily range): BP systolic 132–155; BP diastolic 67–82; PULSE 63–73; RESP 18; TEMP 36.7; O2SAT 93; BMI 25.5
[2023-05-21 09:19] LABS: Basophils # 0.1 K/mm3 (0-0.2); Basophils % 1.2 % (0.1-2.0); Eosinophils # 0.4 K/mm3 (0.0-0.4); Eosinophils % 5.8 % (0.1-12.0); Hematocrit 46.9 % (42.0-52.0); Hemoglobin 14.6 g/dL (14.1-18.0); Lymphocytes % 32.4 % (10-50); Mean Corpuscular HGB Conc 31.2 g/dL (31.8-35.4); Mean Corpuscular Hemoglobin 29.7 pg (27.0-31.2); Mean Corpuscular Volume 95.1 fl (80-94); Monocytes # 0.4 K/mm3 (0.1-1.0); Monocytes % 6.7 % (1.7-9.3); Neutrophils # 3.4 K/mm3 (1.8-7.8); Neutrophils % 53.9 % (37.0-80.0); Platelet Count 283 K/mm3 (142-424); Red Blood Count 4.93 M/mm3 (4.60-6.20); Red Cell Distribution Width 14.2 % (11.5-17.5); White Blood Count 6.2 K/mm3 (4.8-10.8)
== END 2023-05-21 13:20 | disposition home or self-care (01) ==
LOC: INF 08:48
PROVIDERS: PCP Nurse Practitioner Family; Visit Provider Physician Assistant
DX: M05.79 Rheumatoid arthritis with rheumatoid factor of multiple sites without organ or systems involvement (principal)
CPT/HCPCS: 85025; 96413; 96415; J9312

== ENCOUNTER 2023-06-03 09:06 | Outpatient (CLI) | payer MEDICARE, SELFPAY ==
[2023-06-03] VITALS (8 sets, daily range): BP systolic 119–178; BP diastolic 48–75; PULSE 59–78; RESP 18; O2SAT 93; BMI 26.7
[2023-06-03 09:33] LABS: Basophils # 0.1 K/mm3 (0-0.2); Basophils % 0.8 % (0.1-2.0); Eosinophils # 0.4 K/mm3 (0.0-0.4); Eosinophils % 4.1 % (0.1-12.0); Hematocrit 45.8 % (42.0-52.0); Lymphocytes # 2.2 K/mm3 (0.7-4.5); Lymphocytes % 25.4 % (10-50); Mean Corpuscular HGB Conc 32.8 g/dL (31.8-35.4); Mean Corpuscular Hemoglobin 30.4 pg (27.0-31.2); Mean Corpuscular Volume 92.6 fl (80-94); Mean Platelet Volume 7.7 fl (7.4-10.4); Monocytes # 0.8 K/mm3 (0.1-1.0); Monocytes % 8.8 % (1.7-9.3); Neutrophils # 5.2 K/mm3 (1.8-7.8); Platelet Count 324 K/mm3 (142-424); Red Blood Count 4.94 M/mm3 (4.60-6.20); Red Cell Distribution Width 13.9 % (11.5-17.5); White Blood Count 8.5 K/mm3 (4.8-10.8)
== END 2023-06-03 13:41 | disposition home or self-care (01) ==
LOC: INF 09:09
PROVIDERS: PCP Nurse Practitioner Family; Visit Provider Physician Assistant
DX: M05.79 Rheumatoid arthritis with rheumatoid factor of multiple sites without organ or systems involvement (principal); Z51.12 Encounter for antineoplastic immunotherapy
CPT/HCPCS: 85025; 96413; 96415; J9312

== ENCOUNTER → 2023-09-11 14:05 | Outpatient (CLI) | payer MEDICARE, SELFPAY ==
--- NOTE | 2023-09-11 14:05 | CT_ITS ---
FINAL REPORT CLINICAL HISTORY: lung cancer screening FORMER SMOKER, QUIT 4 YEARS AGO 1PPD X50 YEARS WHEN SMOKING COMPARISON: 06/18/2022 FINDINGS: CT CHEST LOW DOSE SCREENING HISTORY: Screening exam for lung cancer. 73-year-old male, former smoker, quit 4 years ago, 50 pack year smoking history DOSE: CTDIvol: 2.9 mGy, DLP: 109.16 mGy*cm COMPARISON: 06/18/2022. TECHNIQUE: Axial CT without IV contrast administration using low dose protocol FINDINGS: Severe changes of emphysema are present, as well as mild scarring. Several calcified granulomas are identified. There is a 10 mm nodule in the superior segment of the left lower lobe, stable since the prior CT. There is another 8 mm pleural-based nodule, right middle lobe, also stable. There is an 8 mm irregular pleural-based opacity in the right upper lobe, seen best in image #23, that has increased in size since the prior examination. There is a 5 mm nodule in the right lung base, seen best on image #58, that is also larger since the prior CT. No pleural or pericardial effusion is seen . No adenopathy or mass lesion is present . IMPRESSION: 2 nodules are present which have increased in size since the prior exam. One nodule is in the right upper lobe, the other is in the right lung base. LUNG RADS CATEGORY 4B RECOMMENDATION: Recommend PET CT for further evaluation. Reviewed, Interpreted and Dictated by Vinicius Mcclain III, MD Transcribed by Flower Amaya Authenticated and [facility]
== END ==
LOC: RAD 14:05
PROVIDERS: PCP Nurse Practitioner Family; Visit Provider Nurse Practitioner Family
DX: F17.210 Nicotine dependence, cigarettes, uncomplicated (principal); R91.1 Solitary pulmonary nodule; Z12.2 Encounter for screening for malignant neoplasm of respiratory organs
CPT/HCPCS: 71271

== ENCOUNTER 2023-11-02 09:55 | Outpatient (CLI) | payer MEDICARE, SELFPAY ==
[2023-11-02 10:52] LABS: Basophils # 0.1 K/mm3 (0-0.2); Basophils % 1.4 % (0.1-2.0); Eosinophils # 0.4 K/mm3 (0.0-0.4); Eosinophils % 5.1 % (0.1-12.0); Hematocrit 50.8 % (42.0-52.0); Hemoglobin 16.5 g/dL (14.1-18.0); Lymphocytes # 2.5 K/mm3 (0.7-4.5); Lymphocytes % 33.8 % (10-50); Mean Corpuscular HGB Conc 32.6 g/dL (31.8-35.4); Mean Corpuscular Hemoglobin 30.3 pg (27.0-31.2); Mean Corpuscular Volume 93.1 fl (80-94); Mean Platelet Volume 8.2 fl (7.4-10.4); Monocytes # 0.8 K/mm3 (0.1-1.0); Monocytes % 10.3 % (1.7-9.3); Neutrophils # 3.7 K/mm3 (1.8-7.8); Neutrophils % 49.3 % (37.0-80.0); Platelet Count 280 K/mm3 (142-424); Red Blood Count 5.46 M/mm3 (4.60-6.20); Red Cell Distribution Width 14.1 % (11.5-17.5); White Blood Count 7.5 K/mm3 (4.8-10.8)
[2023-11-02 11:23] LABS: Chloride 97 mmol/L (98-107); Potassium 4.8 mmoL/L (3.5-5.1); Sodium 133 mmol/L (136-145)
[2023-11-02 11:25] LABS: Alanine Aminotransferase 27 U/L (12-78); Aspartate Amino Transferase 34 U/L (17-59); Blood Urea Nitrogen 10 mg/dl (9-20); Estimated Glomerular Filt Rate 66 ml/min (>60); GFR (African American) 80 ML/MIN (>60)
[2023-11-02 11:26] LABS: Albumin Level 4.1 g/dl (3.5-5.0); Albumin/Globulin Ratio 1.3 (1.1-1.8); Alkaline Phosphatase 121 U/L (38-126); Anion Gap 11.8 mEq/L (5-15); Bilirubin,Total 0.7 mg/dl (0.2-1.3); Calcium 9.1 mg/dl (8.4-10.2); Carbon Dioxide 29 mmol/L (22.0-30.0); Globulin 3.1 g/dL (1.3-3.2); Glucose 110 mg/dl (74-100); Total Protein,Serum 7.2 g/dl (6.3-8.2)
== END 2023-11-02 23:59 ==
LOC: LAB 09:57
PROVIDERS: PCP Nurse Practitioner Family; Visit Provider Internal Medicine
DX: M05.79 Rheumatoid arthritis with rheumatoid factor of multiple sites without organ or systems involvement (principal)
CPT/HCPCS: 36415; 80053; 85025

== ENCOUNTER 2023-12-24 08:58 | Outpatient (CLI) | payer MEDICARE, SELFPAY ==
[2023-12-24] VITALS (9 sets, daily range): BP systolic 152–174; BP diastolic 65–95; PULSE 59–88; RESP 18–19; O2SAT 94–95; BMI 26.7
[2023-12-24] MEDS: diphenhydrAMINE 50MG CAPSULE 50 MG PO (09:30)
[2023-12-24] MEDS: METHYLPREDNISOLONE SOD SUCC 125MG VIAL 125 MG IV (09:30)
[2023-12-24] MEDS: ACETAMINOPHEN 325MG TAB 650 MG PO (09:30)
[2023-12-24 09:36] LABS: Basophils # 0.1 K/mm3 (0-0.2); Basophils % 1.4 % (0.1-2.0); Eosinophils # 0.4 K/mm3 (0.0-0.4); Eosinophils % 4.2 % (0.1-12.0); Hematocrit 48.1 % (42.0-52.0); Hemoglobin 15.6 g/dL (14.1-18.0); Lymphocytes # 2.5 K/mm3 (0.7-4.5); Lymphocytes % 26.5 % (10-50); Mean Corpuscular HGB Conc 32.5 g/dL (31.8-35.4); Mean Corpuscular Hemoglobin 31.5 pg (27.0-31.2); Mean Corpuscular Volume 96.9 fl (80-94); Mean Platelet Volume 7.7 fl (7.4-10.4); Monocytes # 0.7 K/mm3 (0.1-1.0); Monocytes % 7.6 % (1.7-9.3); Neutrophils # 5.6 K/mm3 (1.8-7.8); Neutrophils % 60.2 % (37.0-80.0); Platelet Count 315 K/mm3 (142-424); Red Blood Count 4.96 M/mm3 (4.60-6.20); Red Cell Distribution Width 14.3 % (11.5-17.5); White Blood Count 9.2 K/mm3 (4.8-10.8)
[2023-12-24] MEDS: SODIUM CHLORIDE 0.9% 50ML BAG 50 ML IV (09:57)
[2023-12-24] MEDS: RITUXIMAB 1,000 MG in 0.9 % SODIUM CHLORIDE 400 ML 50 MG IV (09:57)
== END 2023-12-24 13:16 | disposition home or self-care (01) ==
LOC: INF 08:59
PROVIDERS: PCP Nurse Practitioner Family; Visit Provider Internal Medicine Rheumatology
DX: M05.79 Rheumatoid arthritis with rheumatoid factor of multiple sites without organ or systems involvement (principal)
CPT/HCPCS: 85025; 96413; 96415; J9312

== ENCOUNTER 2024-01-05 10:34 | Outpatient (POV) | payer MEDICARE, SELFPAY | END 2024-01-05 23:59 | disposition home or self-care (01) | LOC: SC 10:35 | PROVIDERS: PCP Nurse Practitioner Family; Visit Provider Dermatology | DX: Z00.00 Encounter for general adult medical examination without abnormal findings (principal) ==

== ENCOUNTER 2024-01-07 08:53 | Outpatient (CLI) | payer MEDICARE, SELFPAY ==
[2024-01-07] VITALS (9 sets, daily range): BP systolic 135–163; BP diastolic 72–94; PULSE 62–86; RESP 18; TEMP 36.7; O2SAT 92–98; BMI 26.7
[2024-01-07 09:18] LABS: Basophils # 0.1 K/mm3 (0-0.2); Basophils % 1.4 % (0.1-2.0); Eosinophils # 0.4 K/mm3 (0.0-0.4); Eosinophils % 4.1 % (0.1-12.0); Hematocrit 48.9 % (42.0-52.0); Hemoglobin 15.6 g/dL (14.1-18.0); Lymphocytes # 2.5 K/mm3 (0.7-4.5); Lymphocytes % 27.4 % (10-50); Mean Corpuscular HGB Conc 31.8 g/dL (31.8-35.4); Mean Corpuscular Hemoglobin 31.2 pg (27.0-31.2); Mean Corpuscular Volume 97.9 fl (80-94); Mean Platelet Volume 7.5 fl (7.4-10.4); Monocytes # 0.7 K/mm3 (0.1-1.0); Monocytes % 7.5 % (1.7-9.3); Neutrophils # 5.3 K/mm3 (1.8-7.8); Neutrophils % 59.6 % (37.0-80.0); Platelet Count 342 K/mm3 (142-424); Red Blood Count 4.99 M/mm3 (4.60-6.20); Red Cell Distribution Width 14.4 % (11.5-17.5); White Blood Count 8.9 K/mm3 (4.8-10.8)
[2024-01-07] MEDS: diphenhydrAMINE 50MG CAPSULE 50 MG PO (09:19)
[2024-01-07] MEDS: ACETAMINOPHEN 325MG TAB 650 MG PO (09:19)
[2024-01-07] MEDS: METHYLPREDNISOLONE SOD SUCC 125MG VIAL 125 MG IV (09:20)
[2024-01-07] MEDS: SODIUM CHLORIDE 0.9% 50ML BAG 50 ML IV (09:20)
[2024-01-07] MEDS: RITUXIMAB 1,000 MG in 0.9 % SODIUM CHLORIDE 500 ML 50 MG IV (09:51)
== END 2024-01-07 13:28 | disposition home or self-care (01) ==
LOC: INF 08:54
PROVIDERS: PCP Nurse Practitioner Family; Visit Provider Internal Medicine Rheumatology
DX: M05.79 Rheumatoid arthritis with rheumatoid factor of multiple sites without organ or systems involvement (principal)
CPT/HCPCS: 85025; 96413; 96415; J9312

== ENCOUNTER 2024-03-29 18:00 | Outpatient (CLI) | payer MEDICARE, SELFPAY ==
[2024-03-29 19:22] LABS: Basophils # 0.1 K/mm3 (0-0.2); Basophils % 1.1 % (0.1-2.0); Eosinophils # 0.3 K/mm3 (0.0-0.4); Eosinophils % 3.8 % (0.1-12.0); Hematocrit 47.5 % (42.0-52.0); Hemoglobin 15.3 g/dL (14.1-18.0); Lymphocytes # 1.6 K/mm3 (0.7-4.5); Lymphocytes % 19.4 % (10-50); Mean Corpuscular HGB Conc 32.1 g/dL (31.8-35.4); Mean Corpuscular Hemoglobin 31.1 pg (27.0-31.2); Mean Corpuscular Volume 96.9 fl (80-94); Mean Platelet Volume 10.6 fl (7.4-10.4); Monocytes # 0.8 K/mm3 (0.1-1.0); Monocytes % 9.5 % (1.7-9.3); Neutrophils # 5.5 K/mm3 (1.8-7.8); Neutrophils % 66.2 % (37.0-80.0); Platelet Count 396 K/mm3 (142-424); Red Blood Count 4.91 M/mm3 (4.60-6.20); Red Cell Distribution Width 14.2 % (11.5-17.5); White Blood Count 8.3 K/mm3 (4.8-10.8)
[2024-03-29 19:36] LABS: Alanine Aminotransferase 14 U/L (12-78); Albumin/Globulin Ratio 1.4 (1.1-1.8); Alkaline Phosphatase 94 U/L (38-126); Anion Gap 14.3 mEq/L (5-15); Aspartate Amino Transferase 27 U/L (17-59); Bilirubin,Total 0.6 mg/dl (0.2-1.3); Blood Urea Nitrogen 8 mg/dl (9-20); Calcium 9.6 mg/dl (8.4-10.2); Carbon Dioxide 25 mmol/L (22.0-30.0); Chloride 94 mmol/L (98-107); Chol/HDL Ratio 4.4 (1-3.5); Cholesterol 200 mg/dl (140-200); Estimated Glomerular Filt Rate 83 ml/min (>60); GFR (African American) 101 ML/MIN (>60); Globulin 2.9 g/dL (1.3-3.2); Glucose 106 mg/dl (74-100); HDL Cholesterol 45 mg/dl (40-60); Potassium 4.3 mmoL/L (3.5-5.1); Sodium 129 mmol/L (136-145); Total Protein,Serum 6.9 g/dl (6.3-8.2); Triglycerides 94 mg/dl (30-150); VLDL Cholesterol 19 mg/dL (0-40)
[2024-03-29 19:53] LABS: Hemoglobin A1C 5.8 % (4.0-6.0)
[2024-03-29 19:57] LABS: Direct LDL Cholesterol 125.82 mg/dL (100-129)
[2024-03-29 20:05] LABS: Thyroid Stimulating Hormone 5.25 uIU/mL (0.465-4.68)
[2024-03-31 08:46] LABS: Testosterone,Total 379 ng/dL (264-916)
[2024-04-04 00:26] LABS: Testosterone,Free 1.6 pg/mL (6.6-18.1)
== END 2024-03-29 23:59 | disposition home or self-care (01) ==
LOC: LAB.DROPOF 03-30 10:00
PROVIDERS: PCP Nurse Practitioner Family; Visit Provider Nurse Practitioner Family
DX: R53.83 Other fatigue; E03.9 Hypothyroidism, unspecified; J44.9 Chronic obstructive pulmonary disease, unspecified; Z85.828 Personal history of other malignant neoplasm of skin; Z87.891 Personal history of nicotine dependence
CPT/HCPCS: 80050; 80053; 80061; 83036; 84402; 84403; 84443; 85025

== ENCOUNTER 2024-04-11 10:47 | Outpatient (CLI) | payer MEDICARE, SELFPAY ==
[2024-04-11 13:55] LABS: Hemoglobin A1C 5.7 % (4.0-6.0)
[2024-04-12 11:33] LABS: Sex Hormone Binding Globulin 70.5 nmol/L (19.3-76.4)
[2024-04-12 13:14] LABS: Estradiol 23.5 pg/mL (7.6-42.6); PSA, Free 1.05 ng/mL; Prostate Specific Ag 3.8 ng/mL (0.0-4.0); Testosterone,Total 586 ng/dL (264-916)
[2024-04-18 19:08] LABS: Testosterone, Total, LC/MS 602 ng/dL (.)
== END 2024-04-11 23:59 | disposition home or self-care (01) ==
LOC: LAB 10:49
PROVIDERS: PCP Nurse Practitioner Family; Visit Provider Urology
DX: N40.1 Benign prostatic hyperplasia with lower urinary tract symptoms (principal); R35.1 Nocturia; N52.9 Male erectile dysfunction, unspecified; R73.9 Hyperglycemia, unspecified
CPT/HCPCS: 36415; 82670; 83036; 84153; 84154; 84270; 84402; 84403

== ENCOUNTER 2024-04-28 09:39 | Outpatient (CLI) | payer MEDICARE, SELFPAY ==
[2024-04-28] MEDS: IPRATROPIUM/ALBUTEROL 3 ML NEB IH (10:37)
== END 2024-04-28 23:59 | disposition home or self-care (01) ==
LOC: RT 09:41
PROVIDERS: PCP Nurse Practitioner Family; Visit Provider Internal Medicine Pulmonary Disease
DX: J44.9 Chronic obstructive pulmonary disease, unspecified (principal); R06.02 Shortness of breath; Z87.891 Personal history of nicotine dependence
CPT/HCPCS: 94060; J7620

== ENCOUNTER 2024-05-02 11:04 | Outpatient (CLI) | payer MEDICARE, SELFPAY ==
[2024-05-03 11:24] LABS: Sex Hormone Binding Globulin 83.7 nmol/L (19.3-76.4)
[2024-05-03 13:14] LABS: Testosterone,Total 619 ng/dL (264-916)
== END 2024-05-02 23:59 | disposition home or self-care (01) ==
PROVIDERS: PCP Nurse Practitioner Family; Visit Provider Urology
DX: N40.1 Benign prostatic hyperplasia with lower urinary tract symptoms (principal); R35.1 Nocturia; N52.9 Male erectile dysfunction, unspecified
CPT/HCPCS: 36415; 84270; 84403

== ENCOUNTER 2024-05-10 13:23 | Outpatient (CLI) | payer MEDICARE, SELFPAY ==
--- NOTE | 2024-05-10 13:24 | CT_ITS ---
FINAL REPORT TECHNIQUE: Axial images were obtained from the lung apex to the mid abdomen by computed tomography. Coronal reformatted images were obtained. This study was performed with techniques to keep radiation doses as low as reasonably achievable, (ALARA). Individualized dose reduction techniques using automated exposure control or adjustment of mA and/or kV according to the patient''s size were employed. CLINICAL HISTORY: Lung nodule COMPARISON: 09/11/2023 FINDINGS: There is no axillary adenopathy. There is no hilar or mediastinal adenopathy. Heart size is normal. There is no pericardial or pleural effusion. There is a 10 mm well-circumscribed noncalcified nodule in the superior segment of the left lower lobe best seen on image 91 of series 3. The previously noted density in the posterior right upper lobe is again seen measuring 9 mm in greatest dimension and stable. This is best seen on image 76 of series 3. The previously noted tiny nodule in the left lung base is no longer identified. The pleural-based focus in the right middle lobe measuring 5 mm on image 191 of series 3 is stable. Limited images of the upper abdomen are unremarkable. IMPRESSION: Stable bilateral lung nodules as above. Follow-up in 1 year recommended. Reviewed, Interpreted and Dictated by Catracho De Oliveira MD Transcribed by Laney Rachel Authenticated and [facility]
== END 2024-05-10 23:59 | disposition home or self-care (01) ==
LOC: RAD 13:24
PROVIDERS: PCP Internal Medicine; Visit Provider Internal Medicine Pulmonary Disease
DX: R91.8 Other nonspecific abnormal finding of lung field (principal)
CPT/HCPCS: 71250

== ENCOUNTER 2024-07-11 08:56 | Outpatient (CLI) | payer MEDICARE, SELFPAY ==
[2024-07-11] VITALS (8 sets, daily range): BP systolic 149–173; BP diastolic 76–88; PULSE 52–68; RESP 18; TEMP 36.7; O2SAT 96–97; BMI 26.7
[2024-07-11] MEDS: ACETAMINOPHEN 325MG TAB 650 MG (09:05)
[2024-07-11] MEDS: METHYLPREDNISOLONE SOD SUCC 125MG VIAL 125 MG (09:05)
[2024-07-11] MEDS: diphenhydrAMINE 50MG CAPSULE 50 MG PO (09:06)
[2024-07-11] MEDS: 0.9 % SODIUM CHLORIDE 50 ML 100 ML IV (09:06)
[2024-07-11 09:33] LABS: Basophils # 0.1 K/mm3 (0-0.2); Basophils % 0.7 % (0.1-2.0); Eosinophils # 0.5 K/mm3 (0.0-0.4); Hematocrit 45.8 % (42.0-52.0); Lymphocytes # 2.3 K/mm3 (0.7-4.5); Mean Corpuscular HGB Conc 32.7 g/dL (31.8-35.4); Mean Corpuscular Hemoglobin 31.3 pg (27.0-31.2); Mean Corpuscular Volume 95.7 fl (80-94); Mean Platelet Volume 7.3 fl (7.4-10.4); Monocytes # 0.8 K/mm3 (0.1-1.0); Monocytes % 8.6 % (1.7-9.3); Neutrophils # 5.4 K/mm3 (1.8-7.8); Neutrophils % 59.7 % (37.0-80.0); Platelet Count 360 K/mm3 (142-424); Red Blood Count 4.79 M/mm3 (4.60-6.20); Red Cell Distribution Width 14.3 % (11.5-17.5)
[2024-07-11] MEDS: RITUXIMAB 1,000 MG in 0.9 % SODIUM CHLORIDE 500 ML 50 MG IV (09:49)
== END 2024-07-11 13:05 | disposition home or self-care (01) ==
LOC: INF 08:58
PROVIDERS: PCP Nurse Practitioner Family; Visit Provider Internal Medicine Rheumatology
DX: M05.79 Rheumatoid arthritis with rheumatoid factor of multiple sites without organ or systems involvement (principal)
CPT/HCPCS: 85025; 96365; 96366; J2919; J9312

== ENCOUNTER 2024-07-25 09:03 | Outpatient (CLI) | payer MEDICARE, SELFPAY ==
[2024-07-25] VITALS (8 sets, daily range): BP systolic 122–177; BP diastolic 73–87; PULSE 52–68; RESP 18–19; TEMP 36.5; O2SAT 96–100; BMI 26.8
[2024-07-25] MEDS: diphenhydrAMINE 50MG/ML VIAL 50 MG (09:19)
[2024-07-25] MEDS: ACETAMINOPHEN 325MG TAB 650 MG (09:19)
[2024-07-25] MEDS: METHYLPREDNISOLONE SOD SUCC 125MG VIAL 125 MG (09:19)
[2024-07-25 09:25] LABS: Basophils # 0.1 K/mm3 (0-0.2); Basophils % 1.3 % (0.1-2.0); Eosinophils # 0.4 K/mm3 (0.0-0.4); Eosinophils % 4.4 % (0.1-12.0); Hematocrit 45.3 % (42.0-52.0); Hemoglobin 15.5 g/dL (14.1-18.0); Lymphocytes % 22.8 % (10-50); Mean Corpuscular HGB Conc 34.3 g/dL (31.8-35.4); Mean Corpuscular Hemoglobin 31.4 pg (27.0-31.2); Mean Corpuscular Volume 91.7 fl (80-94); Mean Platelet Volume 7.3 fl (7.4-10.4); Monocytes # 0.8 K/mm3 (0.1-1.0); Monocytes % 8.9 % (1.7-9.3); Neutrophils # 5.4 K/mm3 (1.8-7.8); Neutrophils % 62.7 % (37.0-80.0); Platelet Count 296 K/mm3 (142-424); Red Blood Count 4.94 M/mm3 (4.60-6.20); Red Cell Distribution Width 14.9 % (11.5-17.5); White Blood Count 8.6 K/mm3 (4.8-10.8)
[2024-07-25] MEDS: RITUXIMAB 1,000 MG in 0.9 % SODIUM CHLORIDE 500 ML 50 MG IV (09:51)
[2024-07-25] MEDS: SODIUM CHLORIDE 0.9% 50ML BAG 50 ML IV (09:51)
== END 2024-07-25 13:20 | disposition home or self-care (01) ==
LOC: INF 09:05
PROVIDERS: PCP Nurse Practitioner Family; Visit Provider Internal Medicine Rheumatology
DX: M05.79 Rheumatoid arthritis with rheumatoid factor of multiple sites without organ or systems involvement (principal)
CPT/HCPCS: 85025; 96413; 96415; J1200; J2919; J9312

== ENCOUNTER 2024-08-17 09:59 | Outpatient (CLI) | payer MEDICARE, SELFPAY ==
[2024-08-17 19:03] LABS: Hemoglobin A1C 5.6 % (4.0-6.0)
[2024-08-17 21:19] LABS: HIV (1&2) Antibody Rapid NONREACTIVE (NONREACTIVE)
[2024-08-19 05:12] LABS: HBsAg Screen Negative (Negative); HCV Ab Non Reactive (Non Reactive); Hep A Ab, IGM Negative (Negative); Hep B Core Ab, IgM Negative (Negative)
== END 2024-08-17 23:59 | disposition home or self-care (01) ==
LOC: LAB.DROPOF 08-18 10:00
PROVIDERS: PCP Nurse Practitioner Family; Visit Provider Nurse Practitioner Family
DX: R73.9 Hyperglycemia, unspecified (principal); R53.83 Other fatigue
CPT/HCPCS: 80074; 83036; 87389

== ENCOUNTER 2024-12-20 10:20 | Outpatient (CLI) | payer MEDICARE, SELFPAY ==
[2024-12-20 10:25] LABS: Microscopic, Urine URINE MICROSCOPIC (MICROSCOPIC)
[2024-12-20 11:06] LABS: Basophils # 0.1 K/mm3 (0-0.2); Basophils % 1.8 % (0.1-2.0); Eosinophils # 0.5 K/mm3 (0.0-0.4); Eosinophils % 6.3 % (0.1-12.0); Hematocrit 45.3 % (42.0-52.0); Hemoglobin 15.4 g/dL (14.1-18.0); Lymphocytes # 1.9 K/mm3 (0.7-4.5); Lymphocytes % 24.7 % (10-50); Mean Corpuscular Hemoglobin 30.4 pg (27.0-31.2); Mean Corpuscular Volume 89.3 fl (80-94); Mean Platelet Volume 9.5 fl (7.4-10.4); Monocytes % 12.9 % (1.7-9.3); Neutrophils # 4.2 K/mm3 (1.8-7.8); Platelet Count 315 K/mm3 (142-424); Red Blood Count 5.07 M/mm3 (4.60-6.20); White Blood Count 7.8 K/mm3 (4.8-10.8)
[2024-12-20 11:18] LABS: Appearance,Urine Clear (Clear); Color,Urine Yellow (Yellow); PH,Urine 6.5 (5.0-8.5)
[2024-12-20 11:19] LABS: Bilirubin,Urine Negative (Negative); Blood, Urine Negative (Negative); Glucose,Urine (UA) Negative (Negative); Ketones,Urine Negative (Negative); Leukocyte Esterase,Urine Negative (Negative); Nitrate,Urine Negative (Negative); Protein,Urine Negative (Negative); Specific Gravity, Urine 1.015 (1.005-1.030); Squamous Epithelial Cell,Urine Occasional #/hpf (0-5); Urobilinogen,Urine 0.2 EU/dl (0.2)
[2024-12-20 11:58] LABS: Albumin Level 4.4 g/dl (3.5-5.0); Chloride 98 mmol/L (98-107); Potassium 4.6 mmoL/L (3.5-5.1); Sodium 134 mmol/L (136-145)
[2024-12-20 12:00] LABS: Blood Urea Nitrogen 15 mg/dl (9-20); Estimated Glomerular Filt Rate 95 ml/min (>60); GFR (African American) 115 ML/MIN (>60)
[2024-12-20 12:01] LABS: Alanine Aminotransferase 24 U/L (12-78); Albumin/Globulin Ratio 1.7 (1.1-1.8); Alkaline Phosphatase 95 U/L (38-126); Anion Gap 9.6 mEq/L (5-15); Aspartate Amino Transferase 31 U/L (17-59); Bilirubin,Total 0.6 mg/dl (0.2-1.3); Calcium 9.8 mg/dl (8.4-10.2); Carbon Dioxide 31 mmol/L (22.0-30.0); Globulin 2.6 g/dL (1.3-3.2); Glucose 95 mg/dl (74-100)
== END 2024-12-20 23:59 | disposition home or self-care (01) ==
LOC: LAB 10:21
PROVIDERS: PCP Nurse Practitioner Family; Visit Provider Dermatology
DX: L95.9 Vasculitis limited to the skin, unspecified (principal)
CPT/HCPCS: 36415; 80053; 81001; 85025

== ENCOUNTER 2025-01-26 08:49 | Outpatient (CLI) | payer MEDICARE, SELFPAY ==
[2025-01-26] VITALS (10 sets, daily range): BP systolic 150–175; BP diastolic 66–78; PULSE 58–72; RESP 18–20; TEMP 36.7; O2SAT 97–98; BMI 26.7
[2025-01-26 09:24] LABS: Basophils # 0.2 K/mm3 (0-0.2); Basophils % 2.4 % (0.1-2.0); Eosinophils # 0.4 K/mm3 (0.0-0.4); Eosinophils % 6.7 % (0.1-12.0); Hematocrit 41.6 % (42.0-52.0); Hemoglobin 14.5 g/dL (14.1-18.0); Lymphocytes # 1.9 K/mm3 (0.7-4.5); Lymphocytes % 29.2 % (10-50); Mean Corpuscular HGB Conc 34.9 g/dL (31.8-35.4); Mean Corpuscular Hemoglobin 31.1 pg (27.0-31.2); Mean Corpuscular Volume 89.3 fl (80-94); Mean Platelet Volume 9.1 fl (7.4-10.4); Monocytes # 0.8 K/mm3 (0.1-1.0); Monocytes % 12.8 % (1.7-9.3); Neutrophils # 3.2 K/mm3 (1.8-7.8); Neutrophils % 48.6 % (37.0-80.0); Nucleated Red Blood Cells # 0 10^3/uL; Nucleated Red Blood Cells % 0 %; Platelet Count 273 K/mm3 (142-424); Red Blood Count 4.66 M/mm3 (4.60-6.20); Red Cell Distribution Width 13.9 % (11.5-17.5); Red Cell Distribution Width-SD 44.9 fL; White Blood Count 6.6 K/mm3 (4.8-10.8)
[2025-01-26] MEDS: ACETAMINOPHEN 325MG TAB 650 MG PO (09:26)
[2025-01-26] MEDS: METHYLPREDNISOLONE SOD SUCC 125MG VIAL 125 MG IV (09:26)
[2025-01-26] MEDS: SODIUM CHLORIDE 0.9% 50ML BAG 50 ML IV (09:26)
[2025-01-26] MEDS: diphenhydrAMINE 50MG CAPSULE 50 MG PO (09:26)
[2025-01-26] MEDS: RITUXIMAB 1,000 MG in 0.9 % SODIUM CHLORIDE 500 ML 50 MG IV (10:01)
== END 2025-01-26 13:50 | disposition home or self-care (01) ==
LOC: INF 08:50
PROVIDERS: PCP Nurse Practitioner Family; Visit Provider Internal Medicine Rheumatology
DX: J44.1 Chronic obstructive pulmonary disease with (acute) exacerbation (principal)
CPT/HCPCS: 85025; 96413; 96415; J2919; J9312

== ENCOUNTER 2025-02-09 08:47 | Outpatient (CLI) | payer MEDICARE, SELFPAY ==
[2025-02-09] VITALS (7 sets, daily range): BP systolic 144–174; BP diastolic 70–89; PULSE 49–69; RESP 18–20; TEMP 36.8; O2SAT 97–99
[2025-02-09] MEDS: SODIUM CHLORIDE 0.9% 50ML BAG 50 ML IV (09:02)
[2025-02-09] MEDS: ACETAMINOPHEN 325MG TAB 650 MG PO (09:03)
[2025-02-09] MEDS: diphenhydrAMINE 50MG CAPSULE 50 MG PO (09:03)
[2025-02-09] MEDS: METHYLPREDNISOLONE SOD SUCC 125MG VIAL 125 MG IV (09:03)
[2025-02-09] MEDS: RITUXIMAB 1,000 MG in 0.9 % SODIUM CHLORIDE 500 ML 50 MG IV (09:35)
== END 2025-02-09 12:51 | disposition home or self-care (01) ==
LOC: INF 08:50
PROVIDERS: PCP Nurse Practitioner Family; Visit Provider Internal Medicine Rheumatology
DX: R91.8 Other nonspecific abnormal finding of lung field (principal); J44.9 Chronic obstructive pulmonary disease, unspecified
CPT/HCPCS: 96413; 96415; J2919; J9312

== ENCOUNTER 2025-04-18 09:29 | Outpatient (CLI) | payer MEDICARE, SELFPAY ==
--- OUTSIDE RECORDS SUMMARY | 2025-04-05 10:30 | XMS_ITS | Encounter Summary ---
Author Organization Healthcare Address [address] [place] [address] Care Team Providers Care Music Coordinator Name Role Phone Иван Gonzales MD Primary Care Provider + [phone] Reason for Visit * Reason Comments Rheumatoid Arthritis Follow-up Encounter Details Date Type Department Care Team (Latest Contact Info) Description 04/05/2025 10:30 AM EDT Office Visit [facility] [address] [place] [address] Rosanna Cárdenas MD [address] [place] [address] High risk medications (not anticoagulants) long-term use (Primary Dx); Seropositive rheumatoid arthritis (CMS/HCC); Weight loss; Positive MARLENE (antinuclear antibody); Chronic fatigue; Osteoarthritis, unspecified osteoarthritis type, unspecified site; Healthcare maintenance Social History Tobacco Use Types Packs/Day Years Used Date Smoking Tobacco: Former Cigarettes 1 50 0 03/26/1967 - 03/26/2017 Passive Smoke Exposure: Past Smokeless Tobacco: Never Alcohol Use Standard Drinks/Week Comments Yes 4 (1 standard drink = 0.6 oz pur e alcohol) PHQ-2 Answer Date Recorded Patient Health Questionnaire-2 Score 0 04/05/2025 AUDIT-C Answer Date Recorded Q1: How often do you have a drink containing alcohol? 4 or more times a week 04/05/2025 Q2: How many drinks containi ng alcohol do you have on a typical day when you are drinking? 1 or 2 Q3: How often do you have si x or more drinks on one occasion? Never 04/05/2025 PHQ-2A Answer Date Recorded Patient Health Questionnaire-2 Score 0 05/14/2023 Sex and Gender Information Value Date Recorded Sex Assigned at Not on file Legal Sex Male 7:58 PM EDT Gender Identity Not on file Sexual Orientation Not on file documented as of this encounter Last Filed Vital Signs Vital Sign Reading Time Taken Comments Blood Pressure 166/80 04/05/2025 12:17 PM EDT Pulse 55 04/05/2025 10:45 AM EDT Temperature 36.6 C (97.8 F) 04/05/2025 10:45 AM EDT Respiratory Rate 18 04/05/2025 10:45 AM EDT Oxygen Saturation 95% 04/05/2025 10:45 AM EDT Inhaled Oxygen Concentration - - Weight 75.5 kg (166 lb 7.2 oz) 04/05/2025 10:45 AM EDT Height 177.8 cm (5' 10 ) 04/05/2025 10:45 AM EDT Body Mass Index 23.88 04/05/2025 10:45 AM EDT documented in this encounter Functional Status * AUDIT-C Score Answer Date of Assessment Author 4 04/05/2025 10:49 AM EDT Denia Tidwell * Question Answer Date of Assessment Author Q1: How often do you have a drink containing alcohol? 4 or more times a week 04/05/2025 10:49 AM RANJANT Denia Tidwell Q2: How many drinks containing alcohol do you have on a typical day when you are drinking? 1 or 2 04/05/2025 10:49 AM EDT Denia Tidwell Q3: How often do you have six or more drinks on one occasion? Never 04/05/2025 10:49 AM RANJANT Denia Tidwell * Over the past 2 weeks, how often have you been bothered by any of the following problems? Question Answer Date of Assessment Author Little interest or pleasure in doing things Not at all 04/05/2025 10:47 AM Denia Smith Feeling down, depressed, or hopeless Not at all 04/05/2025 10:47 AM EDT Denia Tidwell Patient Health Questionnaire -2 Score 0 04/05/2025 10:47 AM RANJANT Denia Tidwell documented as of this encounter Miscellaneous Notes * Patient Instructions - Rosanna Cárdenas MBBS - 04/05/2025 10:30 AM EDT Please decrease Arava or leflunomide from 20 mg per day to 10 mg per day, new prescription sent to pharmacy Please get us blood work from the PCP from 2 weeks ago Recommend CBC/CMP/ESR/CRP/SPEP with next blood draw with your PCP in 3 months please Discuss weight loss more with PCP X rays today RTC [address] Cárdenas * Progress Notes - Rosanna Cárdenas MBBS - 04/05/2025 10:30 AM EDT Images from the original note were not included. Rheumatology Office Visit - Consult Note Tyrone Mckinley is a 74 y.o. male with seropositive erosive RA who presents today for follow up, last seen by me in Sep 2024. He also has a history of lung nodule which was biopsied. Subjective HPI: Tyrone Mckinley is a 72 y.o. male with PMH significant for melanoma skin cancer, hypothyroidism, COPD, pulmonary nodule which was biopsied, thought to be non malignant and because of rheumatoid arthritis (under surveillance), RA, who presents today for follow up of Rheumatoid arthritis involving multiple sites. Synovitis in MPCs/PIPs, wrist seen on initial exam. He has been on Rituximab and he feels like this proved to be the most beneficial with regards to RA. He has been tolerating it well except for generalized fatigue which he started noticing more around late 2022. He hurts typically in BL 2nd MCPs most with his disease. Chronic back pain (hx in 1995 of backhoe accident), injury to low back, has nerve damage with left foot drop and chronic numbness left lateral foot, and also has chronic left shoulder reduced ROM since injury. Lung nodule: Previously seen by Dr. Fuentes, status post CT-guided lung biopsy showing inflammatory changes without malignancy. Last visit 09/2024: Today, he was by himself in the office and said hi daughter was busy so she couldn't come. He has been doing ok largely. His RA he says is very well controlled. He gets his RTX infusions at [facility] and he thinks last infusion was around 2 months ago, it takes quite long to get them around 5 hours , he said. He has poor sleep, fatigue and weight loss: about 20 pounds unintentionally in 6 months. He has had no fever, new medications started or new illnesses. He says she wakes up several times at night to go to bathroom to pee, its difficult for him to go to sleep. He drinks a pot of coffee everyday, watches TV before going to bed. No one has told him that he snores or stops breathing at night, he does sleep alone for last several years though. 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 He said his PCP has him up to date with age relevant cancer screenings. He denies night sweats and abnormal LAD that he can feelin neck or groin or under arms. Plan: continued of Lef and rituximab, labs done Interim 04/05/2025 Accompanied with her younger daughter today. He said that his arthritis is very well controlled, hehas been no new complaints or symptoms. He said that he does not remember exactly what medications he takes but he is very regular and compliant with them. The daughter did express concerns for ongoing on intentional weight loss. It seems like patient did not want to discussed how much about his weight loss concerns at this time. He also stated that he just recently has gotten blood work done with his PCP and he would rather not have any blood work done today. Recent labs: CBC 08/04: largely unremarkable CMP 08/04: serum sodium low at 129, chronically, liver enzymes not elevated, renal function intact with eGFR 82.4 CRP down to 8.8 from 20.5 ESR 22 CD 19 0 Relevant Labs/radiology: RF + 25, CCP + >200 Xrays 05/2022: hands/feet showed nonspecific lucency possibly erosions in hands and OA. Referral with + [facility]. At , MARLENE + 1:80 homogenous, subserologies negative and no clinical features of SLE. Biopsy lung nodule: DIAGNOSIS A. LUNG, LEFT LOWER LOBE NODULE; CT GUIDED CORE BIOPSY/TOUCH PREP: - RARE ATYPICAL GLANDS IN A CHRONIC INFLAMMATORY BACKGROUND. SEE COMMENT COMMENT The touch preps and core biopsy contain rare enlarged epithelial cells with mild nuclear atypia. The background consists of mild chronic inflammation. This most likely represents reactive atypia in the setting of bronchiolitis; however, atypical adenomatous hyperplasia or non-invasive adenocarcinoma cannot be entirely excluded. Rheum medication hx: LEF 06/2022 - current Rituxan 10/17/2022 - current Q 6 months Review of systems 14 point ROS was done, negative other than mentioned in HPI. Objective Past Medical History: Diagnosis Date Disorder of thyroid, unspecified Thyroid dysfunction Foot drop, left foot Other seasonal allergic rhinitis Seasonal allergies Sleep disorder, unspecified Sleep difficulties Unspecified disorder of ear, unspecified ear Ear problem Unspecified malignant neoplasm of skin, unspecified Skin cancer Unspecified osteoarthritis, unspecified site Arthritis Past Surgical History: Procedure Laterality Date LUNG BIOPSY CT guided biopsy of left lower lobe nodule SKIN CANCER EXCISION ears Family History Problem Relation Name Age of Onset Brain cancer Mother FH: brain cancer Lung cancer Father FH: lung cancer Dementia Sister Arthritis Sister Rheum arthritis Neg Hx Social History Tobacco Use Smoking status: Former Current packs/day: 0.00 Average packs/day: 1 pack/day for 50.0 years (50.0 ttl pk-yrs) Types: Cigarettes Start date: 03/26/1967 Quit date: 03/26/2017 Years since quittin.0 Passive exposure: Past Smokeless tobacco: Never Substance Use Topics Alcohol use: Yes Alcohol/week: 4.0 - 14.0 standard drinks of alcohol Types: 4 - 14 Standard drinks or equivalent per week No Known Allergies MEDICATIONS Current Outpatient Medications on File Prior to Visit Medication Sig Dispense Refill albuterol 108 (90 Base) MCG/ACT inhaler Inhale 1 puff 1 (one) time each day. Ascorbic Acid (vitamin C) 250 MG tablet Take 2 tablets (500 mg) by mouth 1 (one) time each day. Breo Ellipta 100-25 MCG/INH inhaler Inhale 1 puff if needed. cyanocobalamin (Vitamin B-12) 100 MCG tablet Take 1 tablet (100 mcg) by mouth 1 (one) time each day. Fluticasone Propionate (FLONASE NA) Administer 1 spray into affected nostril(s) 1 (one) time each day. levothyroxine (Synthroid, Levoxyl) 112 MCG tablet Take 1 tablet (112 mcg) by mouth 1 (one) time each day. Melatonin 5 MG tablet tablet Take by mouth if needed for sleep. meloxicam (Mobic) 7.5 MG tablet TAKE 1 TABLET ONE TIME DAILY FOR BACK PAIN 90 tablet 0 montelukast (Singulair) 10 MG tablet Multiple Vitamin (MULTIVITAMINS PO) Take by mouth. tadalafil (Cialis) 5 MG tablet tamsulosin (Flomax) 0.4 MG 24 hr capsule azelastine (Astelin) 0.1 % nasal spray budesonide (Pulmicort) 0.5 MG/2ML nebulizer solution CANNABIDIOL PO Take 20 mg by mouth 1 (one) time each day. cetirizine (ZyrTEC) 10 MG tablet ipratropium-albuterol (Duo-Neb) 0.5-2.5 mg/3 mL nebulizer solution leflunomide (Arava) 20 MG tablet Take 1 tablet (20 mg) by mouth 1 (one) time each day. 90 tablet 11 oxybutynin XL (Ditropan-XL) 10 MG 24 hr tablet Trelegy Ellipta 100-62.5-25 MCG/ACT aerosol powder VITAMIN E EX Take 1 tablet by mouth 1 (one) time each day. (Patient not taking: Reported on 09/29/2024) No current facility-administered medications on file prior to visit. Results: Appointment on 09/29/2024 Component Date Value WBC Count 09/29/2024 8.55 RBC Count 09/29/2024 5.02 HGB 09/29/2024 15.3 HCT 09/29/2024 45.0 Platelet Count 09/29/2024 348 MCV 09/29/2024 90 MCH 09/29/2024 30.5 MCHC 09/29/2024 34.0 RDW 09/29/2024 14.3 MPV 09/29/2024 9.4 nRBC 09/29/2024 0.0 Differential Type 09/29/2024 Automated Neutrophils % 09/29/2024 59 Lymphocytes % 09/29/2024 24 Monocytes % 09/29/2024 12 Eosinophils % 09/29/2024 4 Basophils % 09/29/2024 1 Immature Granulocytes % 09/29/2024 0 Neutrophils Absolute 09/29/2024 5.01 Lymphocytes Absolute 09/29/2024 2.04 Monocytes Absolute 09/29/2024 1.04 (H) Eosinophils Absolute 09/29/2024 0.34 Basophils Absolute 09/29/2024 0.10 Immature Granulocytes Ab* 09/29/2024 0.02 Percent CD3 09/29/2024 77.7 Absolute CD3 09/29/2024 1,815 Percent CD4 09/29/2024 55.7 Absolute CD4 09/29/2024 1,302 Percent CD8 09/29/2024 13.7 Absolute CD8 09/29/2024 321 Percent CD19 09/29/2024 0.0 (L) Absolute CD19 09/29/2024 0 (L) Percent CD16+CD56 09/29/2024 22.0 Absolute CD16+CD56 09/29/2024 513 CD4:CD8 Ratio 09/29/2024 3.94 Glucose, Plasma 09/29/2024 93 BUN, Plasma 09/29/2024 7 (L) Creatinine, Plasma 09/29/2024 0.90 BUN/Creatinine Ratio 09/29/2024 8 Sodium, Plasma 09/29/2024 132 (L) Potassium, Plasma 09/29/2024 4.8 Chloride, Plasma 09/29/2024 95 (L) CO2, Plasma 09/29/2024 26 Anion Gap 09/29/2024 11 Total Calcium, Plasma 09/29/2024 9.7 Total Protein 09/29/2024 6.8 Albumin, Plasma 09/29/2024 4.0 AST, Plasma 09/29/2024 27 ALT, Plasma 09/29/2024 21 Alkaline Phosphatase, Pl* 09/29/2024 113 Total Bilirubin, Plasma 09/29/2024 0.4 eGFRcr 09/29/2024 90.7 CRP, Plasma 09/29/2024 8.8 (H) Sedimentation Rate 09/29/2024 22 (H) IGA 09/29/2024 208 IGG 09/29/2024 828 IGM 09/29/2024 190 Currently available Rheumatologic testing values noted below: Lab Results Component Value Date SEDRATE 22 (H) 09/29/2024 RF 25 (H) 05/29/2022 MARLENE Detected (H) 05/29/2022 ANATITER 1:80 (A) 05/29/2022 CRP 8.8 (H) 09/29/2024 CCPIGG >200.0 (H) 05/29/2022 Lab Results Component Value Date SCL70 0 05/29/2022 C3 125 05/29/2022 C4 19 05/29/2022 Physical Exam 08/21/2022 9:11 AM 10/17/2022 9:13 AM 01/15/2023 9:27 AM 05/14/2023 9:19 AM 04/06/2024 12:05 PM 09/29/2024 10:26 AM 04/05/2025 10:45 AM Vitals Systolic 171 179 178 169 135 135 160 Diastolic 75 86 98 89 81 82 78 Heart Rate 77 75 75 71 78 66 55 Temp 36.5 C 36.4 C 36.7 C 36.7 C 36.4 C 36.6 C Resp 16 18 Height (cm) 177.8 cm 177.8 cm 177.8 cm 177.8 cm 175.3 cm 177.8 cm 177.8 cm Weight (kg) 87 kg 88.5 kg 87.5 kg 87.7 kg 87.3 kg 78.4 kg 75.5 kg BMI 27.52 kg/m2 27.99 kg/m2 27.68 kg/m2 27.74 kg/m2 28.42 kg/m2 24.8 kg/m2 23.88 kg/m2 BSA (m2) 2.07 m2 2.09 m2 2.08 m2 2.08 m2 2.06 m2 1.97 m2 1.93 m2 Visit Report Report Report Report Report Report Report Report Physical Exam Vitals and nursing note reviewed. Constitutional: Appearance: He is not ill-appearing. Comments: Elderly male, hard of hearing HENT: Head: Normocephalic. Nose: Nose normal. Mouth/Throat: Pharynx: Oropharynx is clear. No oropharyngeal exudate. Eyes: Conjunctiva/sclera: Conjunctivae normal. Cardiovascular: Rate and Rhythm: Normal rate. Pulmonary: Effort: Pulmonary effort is normal. Breath sounds: Normal breath sounds. Abdominal: Palpations: Abdomen is soft. Musculoskeletal: General: Tenderness and deformity present. Normal range of motion. Comments: R 2nd MCP tenderness Thickened BL MCPs Full ROM Hebrden's nodes Z deformity thumb Skin: Findings: No rash. Neurological: General: No focal deficit present. Mental Status: He is alert and oriented to person, place, and time. Mental status is at baseline. Motor: No weakness. Gait: Gait normal. Assessment Seropositive RA, currently on LEF and RTX High risk medication use OA Sleep Disorder Fatigue Weight Loss Immunization Counseling Symptoms are well controlled now, one joint tenderness, no evidence of active synovitis, so his RA is in low activity/remission state right now. The patient also has some OA that responsible for someof his symptoms. The patient tolerates treatment well without any AE, so will continue therapy. Thepatient needs to have blood work on regular basis. He needs more investigations for his unintentional weight loss, no B symptoms reported and says that he has had colonoscopy in last 10 years and gets LDCT every year, has been evaluated for prostate cancer too. But his weight loss is recent and persistent. Fatigue may be coming from poor sleep, he has increased sleep latency and difficulty staying asleep and early awakenings. Some of this is age related, he takes 10 mg melatonin. Some is because he has to get up to pee because of his BPH. We can potentially decrease his leflunomide from 20 mg to 10 mg per day as his disease activity is almost 0. We do highly encouraged him to get chest CT, low- dose, SPEP/immunofixation as part of workup for cancer screening given unintentional weight loss. 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 Normal C3 and C4 No evidence MARLENE related autoimmune disease in history or exam. Likely elevation due to age and/or RA. - monitor and re-eval MARLENE related symptoms annually Patient seen and examined with Dr. Arias Next scheduled follow up: 6 months Miscellaneous Prior notes and results were reviewed by me with independent interpretation of labs and imaging. The patient was counseled regarding diagnosis (testing/results), prognosis, risk factor reduction, management options (risks/benefits), and adherence (visits/treatment). Thank you for allowing us to participate in the care of this patient. ZENAIDA Lau;BS PGY5, Rheumatology Fellow Division of Rheumatology Department of Internal Medicine [facility] Cosigned by Stacie Arias MD at 04/06/2025 2:35 PM EDT Associated attestation - Stacie Arias MD - 04/06/2025 2:35 PM EDT I saw and evaluated the patient with the resident/fellow. I discussed the case with the resident/fellow and agree with the findings and plan as documented. Hx of melanoma, F/u for seropos erosive RA with bilateral ulnar deviation, dx 2021, n leflunomide and RTX RA protocol. In remission, can decrease leflunomide dose. Lung nodule Bx inflammatory changes w.o malignancy, now c/o weight loss, rec age appropriate malignancy screening and will obtain external results. Make sure he gets SPEP I spent 45 minutes in this patient encounter which includes reviewing records from the referring provider, gathering history, reviewing images, labs, evaluation, counseling and documentation. This note is written in medical language and may contain abbreviations or verbiage that are unfamiliar. It may appear blunt or direct. Medical documents are intended to carry relevant information, facts as evident, and the clinical opinion of the medical professional. Parts of this note were dictated using [employer]ar[employer] Direct voice recognition software. As a result, errors may occur. When identified, these child development director errors are corrected, but while every attempt is made to prevent/correctthese, errors may still exist. Stacie Arias MD. Javascript Developer Division of Rheumatology Department of Internal Medicine [facility] documented in this encounter Plan of Treatment Scheduled Orders Name Type Priority Associated Diagnoses Orde r Schedule CBC and differential Lab Routine High risk medications (not anticoagulants) long-term use Weight loss q 3 months for 4 Occurrences starting 04/05/2025 until 10/05/2026 Comprehensive metabolic panel Lab Routine High risk medications (not anticoagulants) long-term use Weight loss q 3 months for 4 Occurrences starting 04/05/2025 until 10/05/2026 Sedimentation Rate, Automated Lab Routine High risk medications (not anticoagulants) long-term use Weight loss Expected: 07/06/2025 (Approximate), Expires: 10/07/2026 C-reactive protein Lab Routine High risk medications (not anticoagulants) long-term use Weight loss Expected: 07/06/2025 (Approximate), Expires: 10/07/2026 Protein electrophoresis, serum Lab Routine High risk medications (not anticoagulants) long-term use Weight loss Expected: 07/06/2025 (Approximate), Expires: 10/07/2026 Immunofixation Electrophoresis Lab Routine High risk medications (not anticoagulants) long-term use Weight loss Expected: 07/06/2025 (Approximate), Expires: 10/07/2026 documented as of this encounter Results * XR Hand and Wrist Bilateral 2 Views (04/05/2025 12:54 PM EDT) Anatomical Region Laterality Modality Hand, Wrist Bilateral Digital Radiogra phy Impressions 04/05/2025 1:18 PM EDT Subtle irregularity of the right ulnar styloid and fovea of the ulna consistent with subtle erosions. Progressive index and middle finger metacarpal phalangeal joint space narrowing with rounded lucencies in the metacarpal heads most pronounced at the ulnar margin of the head of the middle finger metacarpal on the right and within the left index finger metacarpal head which could represent small erosions. CRITICAL RESULT: No. COMMUNICATION: Per this written report. Drafted by Allen Liz MD on 04/05/2025 1:16 PM Final report signed by Allen Liz MD on 04/05/2025 1:18 PM Narrative 04/05/2025 1:18 PM EDT CLINICAL INDICATION: seropositive RA, erosive, follow up TECHNIQUE: XR HAND WRIST BILATERAL 2 VIEWS COMPARISON: 29 May 2022 FINDINGS: Right hand and wrist: There is subtle irregularity of the ulnar styloid and fovea of the ulna. Small cysts are seen in the carpal bones. Distal radius is unremarkable. Severe middle finger metacarpal phalangeal joint space narrowing. Moderate index finger metacarpal phalangeal joint space narrowing which is increased compared to prior. Interphalangeal joint space narrowing is seen throughout with osteophytosis. No erosive changes involving the phalanges. Left hand and wrist: Cystic change in the distal ulna. Small cysts in the carpal bones. Severe index and middle finger metacarpal phalangeal joint space narrowing, increased compared to prior exam. Interphalangeal joint space narrowing is seen. Procedure Note Allen Liz MD - 04/05/2025 CLINICAL INDICATION: seropositive RA, erosive, follow up TECHNIQUE: XR HAND WRIST BILATERAL 2 VIEWS COMPARISON: 29 May 2022 FINDINGS: Right hand and wrist: There is subtle irregularity of the ulnar styloidand fovea of the ulna. Small cysts are seen in the carpal bones. Distalradius is unremarkable. Severe middle finger metacarpal phalangeal jointspace narrowing. Moderate index finger metacarpal phalangeal joint spacenarrowing which is increased compared to prior. Interphalangeal jointspace narrowing is seen throughout with osteophytosis. No erosive changesinvolving the phalanges. Left hand and wrist: Cystic change in the distal ulna. Small cysts in thecarpal bones. Severe index and middle finger metacarpal phalangeal jointspace narrowing, increased compared to prior exam. Interphalangeal jointspace narrowing is seen. IMPRESSION: Subtle irregularity of the right ulnar styloid and fovea of the ulnaconsistent with subtle erosions. Progressive index and middle finger metacarpal phalangeal joint spacenarrowing with rounded lucencies in the metacarpal heads most pronouncedat the ulnar margin of the head of the middle finger metacarpal on theright and within the left index finger metacarpal head which couldrepresent small erosions. CRITICAL RESULT: No. COMMUNICATION: Per this written report. Drafted by Allen Liz MD on 04/05/2025 1:16 PM Final report signed by Allen Liz MD on 04/05/2025 1:18 PM us Mariela Burciaga MD IMG XR PROCEDURES Final Resul t * XR Chest 2 Views (04/05/2025 12:54 PM EDT) Anatomical Region Laterality Modality Chest Digital Radiogra phy Impressions 04/05/2025 2:06 PM EDT No acute findings. CRITICAL RESULT: No. COMMUNICATION: Per this written report. By electronically signing this report, I, the attending physician, attest that I have personally reviewed the images/data for the above examination(s) and agree with the final edited report. Drafted by Reggie Avila MD on 04/05/2025 1:33 PM Final report signed by Jeremiah Luna MD on 04/05/2025 2:06 PM Narrative 04/05/2025 2:06 PM EDT CLINICAL INDICATION: cough, ex smoker, weight loss TECHNIQUE: XR CHEST 2 VIEWS COMPARISON: Chest radiograph 05/10/2019, chest CT 06/07/2020 FINDINGS: Cardiac silhouette and mediastinal contours are within normal limits except for aortic atherosclerosis. No focal consolidation, pleural effusion, or pneumothorax. Unchanged right upper lung calcified granuloma. Calcified hilar and mediastinal lymph nodes are better seen on comparison CT. Hyperinflation. Well-defined sclerotic focus in the right scapula better seen on comparison CT. Procedure Note Jeremiah Luna MD - 04/05/2025 CLINICAL INDICATION: cough, ex smoker, weight loss TECHNIQUE: XR CHEST 2 VIEWS COMPARISON: Chest radiograph 05/10/2019, chest CT 06/07/2020 FINDINGS: Cardiac silhouette and mediastinal contours are within normal limitsexcept for aortic atherosclerosis. No focal consolidation, pleuraleffusion, or pneumothorax. Unchanged right upper lung calcified granuloma.Calcified hilar and mediastinal lymph nodes are better seen on comparisonCT. Hyperinflation. Well-defined sclerotic focus in the right scapulabetter seen on comparison CT. IMPRESSION: No acute findings. CRITICAL RESULT: No. COMMUNICATION: Per this written report. By electronically signing this report, I, the attending physician, attestthat I have personally reviewed the images/data for the aboveexamination(s) and agree with the final edited report. Drafted by Reggie Avila MD on 04/05/2025 1:33 PM Final report signed by Jeremiah Luna MD on 04/05/2025 2:06 PM Mariela Burciaga MD IMG XR PROCEDURES Final Resul t documented in this encounter Visit Diagnoses Diagnosis High risk medications (not anticoagulants) long-term use- Primary Encounter for long-term (current) use of other medications Seropositive rheumatoid arthritis (CMS/HCC) Weight loss Loss of weight Positive MARLENE (antinuclear antibody) Other and unspecified nonspecific immunological findings Chronic fatigue Other malaise and fatigue Osteoarthritis, unspecified osteoarthritis type, unspecified site Healthcare maintenance Weight loss Loss of weight High risk medications (not anticoagulants) long-term use Encounter for long-term (current) use of other medications Seropositive rheumatoid arthritis (CMS/HCC) documented in this encounter Additional Health Concerns Assessment Noted Time A fall risk assessment has been complete d for the patient 04/05/2025 10:47 AM EDT A Body Mass Index follow-up plan has been documented for the patient 04/05/2025 12:11 PM EDT documented as of this encounter Care Teams Music Coordinator Relationship Specialty Start Date End Date Иван Gonzales MD [address] [place] [address] PCP - General 02/22/21 documented as of this encounter
--- OUTSIDE RECORDS SUMMARY | 2025-04-05 12:20 | XMS_ITS | Encounter Summary ---
Author Organization [facility] Address [address] [place] [address] Care Team Providers Care Finisher Hand Name Role Phone Иван Gonzales MD Primary Care Provider [phone] Encounter Details Date Type Department Care Team (Latest Contact Info) Description 04/05/2025 12:20 PM EDT - 04/05/2025 11:59 PM EDT Hospital Encounter [facility] [address], [address] [place] [phone] Weight loss; High risk medications (not anticoagulants) long-term use; Seropositive rheumatoid arthritis (CMS/HCC) Discharge Disposition: Home or Self Care Social History Tobacco Use Types Packs/Day Years [...] on file documented as of this encounter Functional Status * AUDIT-C Score Answer Date of Assessment Author 4 04/05/2025 10:49 AM Denia Smith * Question Answer Date of Assessment Author Q1: How often do you have a drink containing alcohol? 4 or more times a week 04/05/2025 10:49 AM Denia Smith Q2: How many drinks containing alcohol do you have on a typical day when you are drinking? 1 or 2 04/05/2025 10:49 AM Denia Smith Q3: How often do you have six or more drinks on one occasion? Never 04/05/2025 10:49 AM Denia Smith * Over the past 2 weeks, how often have you been bothered by any of the following problems? Question Answer Date of Assessment Author Little interest or pleasure in doing things Not at all 04/05/2025 10:47 AM Denia Smith Feeling down, depressed, or hopeless Not at all 04/05/2025 10:47 AM Denia Smith Patient Health Questionnaire -2 Score 0 04/05/2025 10:47 AM Denia Smith documented as of this encounter Medications at Time of Discharge albuterol 108 (90 Base) MCG/ACT inhaler Inhale 1 puff 1 (one) time each day. 01/12/2022 Ascorbic Acid (vitamin C) 250 MG tablet Take 2 tablets (500 mg) by mouth 1 (one) time each day. azelastine (Astelin) 0.1 % nasal spray 03/29/2024 Breo Ellipta 100-25 MCG/INH inhaler Inhale 1 puff if needed. 02/12/2022 budesonide (Pulmicort) 0.5 MG/2ML nebulizer solution 04/28/2024 CANNABIDIOL PO Take 20 mg by mouth 1 (one) time each day. cetirizine (ZyrTEC) 10 MG tablet 03/29/2024 cyanocobalamin (Vitamin B-12) 100 MCG tablet Take 1 tablet (100 mcg) by mouth 1 (one) time each day. Fluticasone Propionate (FLONASE NA) Administer 1 spray into affected nostril(s) 1 (one) time each day. ipratropium-albu terol (Duo-Neb) 0.5-2.5 mg/3 mL nebulizer solution 04/28/2024 leflunomide (Arava) 10 MG tablet Take 1 tablet by mouth daily. 30 tablet 3 04/05/2025 levothyroxine (Synthroid, Levoxyl) 112 MCG tablet Take 1 tablet (112 mcg) by mouth 1 (one) time each day. 03/28/2022 Melatonin 5 MG tablet tablet Take by mouth if needed for sleep. meloxicam (Mobic) 7.5 MG tablet TAKE 1 TABLET ONE TIME DAILY FOR BACK PAIN 90 tablet 12/14/2024 montelukast (Singulair) 10 MG tablet 03/02/2025 Multiple Vitamin (MULTIVITAMINS PO) Take by mouth. oxybutynin XL (Ditropan-XL) 10 MG 24 hr tablet 08/26/2024 tadalafil (Cialis) 5 MG tablet 10/31/2024 tamsulosin (Flomax) 0.4 MG 24 hr capsule 04/30/2023 Trelegy Ellipta 100-62.5-25 MCG/ACT aerosol powder 07/29/2024 VITAMIN E EX Take 1 tablet by mouth 1 (one) time each day. documented as of this encounter Plan of Treatment Not on file documented as of this encounter Procedures Procedure Name Priority Date/Time Associated Diagnosis Comments XR HAND WRIST BILATERAL 2 VIEWS Routine 04/05/2025 12:54 PM EDT High risk medications (not anticoagulants) long-term use Seropositive rheumatoid arthritis ([facility]) XR CHEST 2 VIEWS Routine 04/05/2025 12:5 4 PM EDT Weight loss documented in this encounter Results * XR Hand and [...] signing this report, I, the attending physician, jose I have personally reviewed the images/data for the aboveexamination(s) and agree with the final edited report. Drafted by Reggie Avila MD on 04/05/2025 1:33 PM Final report signed by Jeremiah Luna MD on 04/05/2025 2:06 PM us Mariela Burciaga MD IMG XR PROCEDURES Final Resul t documented in this encounter Visit Diagnoses Diagnosis Weight loss Loss of weight High risk [...] documented as of this encounter Care Teams Finisher Hand Relationship Specialty Start Date End Date Иван Gonzales MD [address] [place] [address] PCP - General 02/22/21 documented as of this encounter
--- OUTSIDE RECORDS SUMMARY | 2025-04-18 09:31 | XMS_ITS | Encounter Summary ---
Author Organization [facility] Address [address] [place] [address] Care Team Providers Care Steamboat Captain Name Role Phone Иван Gonzales MD Primary Care Provider [phone] Encounter Details Date Type Department Care Team (Latest Contact Info) Description 04/05/2025 Travel Social History Tobacco Use Types Packs/Day Years [...] more times a week 04/05/2025 10:49 AM EDT Denia Tidwell Q2: How many drinks containing alcohol do you have on a typical day when you are drinking? 1 or 2 04/05/2025 10:49 AM EDT Denia Tidwell Q3: How often do you have six or more drinks on one occasion? Never 04/05/2025 10:49 AM EDT Denia Tidwell * Over the past 2 weeks, how often have you been bothered by any of the following problems? Question Answer Date of Assessment Author Little interest or pleasure in doing things Not at all 04/05/2025 10:47 AM EDT Denia Tidwell Feeling down, depressed, or hopeless Not at all 04/05/2025 10:47 AM RANJANT Denia Tidwell Patient Health Questionnaire -2 Score 0 04/05/2025 10:47 AM EDT Denia Tidwell documented as of this encounter Plan of Treatment Not on file documented as of this encounter Visit Diagnoses Not on filedocumented in this encounter Additional Health Concerns Assessment Noted Time A fall risk assessment has been complete d for the patient 04/05/2025 10:47 AM EDT A Body Mass Index follow-up plan has been documented for the patient 04/05/2025 12:11 PM EDT documented as of this encounter Care Teams Steamboat Captain Relationship Specialty Start Date End Date Иван Gonzales MD [address] [place] [address] PCP - General 02/22/21 documented as of this encounter
--- OUTSIDE RECORDS SUMMARY | 2025-04-18 09:31 | XMS_ITS | Clinical Summary ---
Author Organization [facility] Address [address] [place] [address] Care Team Providers Care Wound Care Nurse Name Role Phone Иван Gonzales MD Primary Care Provider [phone] Allergies No known active allergies Medications Fluticasone Propionate (FLONASE NA) Administer 1 spray into affected nostril(s) 1 (one) time each day. Active VITAMIN E EX Take 1 tablet by mouth 1 (one) time each day. Active albuterol 108 (90 Base) MCG/ACT inhaler Inhale 1 puff 1 (one) time each day. 01/13/20 22 Active Ascorbic Acid (vitamin C) 250 MG tablet Take 2 tablets (500 mg) by mouth 1 (one) time each day. Active cyanocobalamin (Vitamin B-12) 100 MCG tablet Take 1 tablet (100 mcg) by mouth 1 (one) time each day. Active Breo Ellipta 100-25 MCG/INH inhaler Inhale 1 puff if needed. 02/13/20 22 Active levothyroxine (Synthroid, Levoxyl) 112 MCG tablet Take 1 tablet (112 mcg) by mouth 1 (one) time each day. 03/28/20 22 Active CANNABIDIOL PO Take 20 mg by mouth 1 (one) time each day. Active tamsulosin (Flomax) 0.4 MG 24 hr capsule 04/30/20 23 Active azelastine (Astelin) 0.1 % nasal spray 03/29/20 24 Active cetirizine (ZyrTEC) 10 MG tablet 03/29/20 24 Active Melatonin 5 MG tablet tablet Take by mouth if needed for sleep. Active budesonide (Pulmicort) 0.5 MG/2ML nebulizer solution 04/28/20 Active Trelegy Ellipta 100-62.5-25 MCG/ACT aerosol powder 07/29/20 24 Active ipratropium-al buterol (Duo-Neb) 0.5-2.5 mg/3 mL nebulizer solution 04/28/20 24 Active oxybutynin XL (Ditropan-XL) 10 MG 24 hr tablet 08/26/20 24 Active meloxicam (Mobic) 7.5 MG tablet TAKE 1 TABLET ONE TIME DAILY FOR BACK PAIN 90 tablet 12/15/19 25 Active montelukast (Singulair) 10 MG tablet 03/02/20 25 Active tadalafil (Cialis) 5 MG tablet 10/31/19 25 Active Multiple Vitamin (MULTIVITAMINS PO) Take by mouth. Activ e leflunomide (Arava) 10 MG tablet Take 1 tablet by mouth daily. 30 tablet 3 04/05/20 25 Active leflunomide (Arava) 20 MG tabletIndicati ons:Seropositi ve rheumatoid arthritis (CMS/HCC) Take 1 tablet (20 mg) by mouth 1 (one) time each day. 90 tablet 11 09/29/20 24 025 Discontinued Active Problems Problem Noted Date Diagnosed Date Positive MARLENE (antinuclear antibody) 05/14/2023 High risk medications (not anticoagulants) long- term use 05/14/2023 Osteoarthritis 05/14/2023 Rheumatoid arthritis involvi ng multiple sites with positive rheumatoid factor 10/17/2022 Encounters Date Type Department Care Team Description 04/05/2025 12:20 PM EDT - 04/05/2025 11:59 PM EDT Hospital Encounter [facility] Radiology [address], [address] [place] [address] Weight loss; High risk medications (not anticoagulants) long-term use; Seropositive rheumatoid arthritis (CMS/HCC) Discharge Disposition: Home or Self Care 04/05/2025 10:30 AM EDT Office Visit [facility] Medicine Specialties [address], [address] [place] [address] Rosanna Cárdenas MD High risk medications (not anticoagulants) long-term use (Primary Dx); Seropositive rheumatoid arthritis ([facility]/H[facility]); Weight loss; Positive MARLENE (antinuclear antibody); Chronic fatigue; Osteoarthritis, unspecified osteoarthritis type, unspecified site; Healthcare maintenance 04/05/2025 Travel 01/26/2025 Orders Only [facility] Medicine Specialties [address] [place] [address] Gelacio Dean MD 01/25/2025 Telephone [facility] Medicine Specialties [address], [address] [place] [address] Jessica Walker MD from Last 3 Months Immunizations Immunization Administration Dates Next Due Influenza, High-dose, Split Virus, Trivalent, Injectable, preservative free 08/17/2024,08/28/2021 Influenza, high-dose, quadrivalent 08/19/2023,,08/28/2021 Influenza, injectable, quadrivalent 07/08/2017 Influenza, seasonal, injectable 07/26/2018 [employer] mobile COVID-19 Vac cine (Purple Cap) 12+ 07/10/2021,01/07/2021,12/10/2020 Pneumococcal Conjugate PCV 13 07/08/2017, 015 Pneumococcal Polysaccharide PPV23 07/12/2018 Zoster, Recombinant 11/04/2021,08/28/2021 Family History Medical History Relation Name Comments Lung cancer Father FH: lung cancer Brain cancer Mother FH: brain cance r Arthritis Sister Dementia Sister Rheum arthritis Neg Hx Relation Name Status Comments Father Maternal Grandmother Mother Sister Alive Social History Tobacco Use Types Packs/Day Years Used Date Smoking Tobacco: Former Cigarettes 1 50 0 03/26/1967 - 03/26/2017 Passive Smoke Exposure: Past Smokeless Tobacco: Never Tobacco Cessation:Counseling Given: Not Answered Alcohol Use Standard Drinks/Week Comments Yes 4 [...] on file Sexual Orientation Not on file Last Filed Vital Signs Vital Sign Reading [...] Mass Index 23.88 04/05/2025 10:45 AM EDT Plan of Treatment Health Maintenance Due Date Last Done Comments [facility] Annual Wellness (AWV) 1950 [facility]-Infant/Child/Adol SDOH Screenings 1950 [facility]- SDOH Screenings 1970 [facility]-Adult SDOH Screenings 1970 [facility]-DTaP,Tdap,and Td Vaccines (1 - Tdap) 1971 CT Colonography 1997 Colonoscopy 1997 FIT-DNA 1997 FIT 1997 FOBT 1997 Sigmoidoscopy 1997 [facility]-Colorectal Cancer Screening 1997 [facility]-Lung Cancer Screening 2002 [facility]-RSV Vaccine: 60+ Years or (1 - Risk 60-74 years 1-dose series) 2012 [facility]-Abdominal Aortic Aneurysm (AAA) Screening 2017 [id number] Vaccine (4 - season) 2024 07/10/2021, 01/07/2021, 12/10/2020 [facility]-Influenza Vaccine (#1) 06/12/202508/17, 08/19/2023, 08/07/2022, Additional history exists [facility]-Depression Screening 04/05/2026 04/05/2025 [facility]-Pneumococcal Vaccine: 50+ Years Completed 07/12/2018, 07/08/2017, 07/11/2015 [facility]-Zoster Vaccines Completed 11/04/2021, [facility]-Hepatitis C Screening Completed 05/29/2022 HPV Vaccines Aged Out No longer eligi ble based on patient's age to complete this topic [facility]-HIB Vaccines Aged Out No longer e ligible based on patient's age to complete this topic [facility]-Hepatitis A Vaccines Aged Out No longer eligible based on patient's age to complete this topic [facility]-IPV Vaccines Aged Out No longer e ligible based on patient's age to complete this topic [facility]-Rotavirus Vaccines Aged Out No lo nger eligible based on patient's age to complete this topic Procedures Procedure Name Priority Date/Time Associated Diagnosis Comments XR HAND WRIST BILATERAL 2 VIEWS Routine 04/05/2025 12:54 PM EDT High risk medications (not anticoagulants) long-term use Seropositive rheumatoid arthritis (CMS/HCC) XR CHEST 2 VIEWS Routine 04/05/2025 12:5 4 PM EDT Weight loss CBC WITH AUTO DIFFERENTIAL Routine 01/26/2025 2:58 PM EDT ACUTE HEPATITIS PANEL Routine 05/29/2022 10:58 AM EDT Elevated rheumatoid factor from Last 3 Months or Most Recently Relevant to Health Maintenance Results * XR Hand and Wrist Bilateral [...] Jeremiah Luna MD on 04/05/2025 2:06 PM Result [facility] Mariela Burciaga MD IMG XR PROCEDURES Final Resul t * CBC and Differential (01/26/2025 2:58 PM EDT) Blood Venous blood specimen / Unknown Historical Provider LAB BLOOD ORDERABLES Lamar l Result * Acute Hepatitis Panel (05/29/2022 10:58 AM EDT) Hepatitis B Surf Antigen Negative Negative 05/29/2022 12:[address] [facility] Hepatitis C Antibody Negative Negative 05/29/2022 12:[address] [facility] Hepatitis A Antibody IgM Negative Negative 05/29/2022 12:[address] [facility] Hepatitis B Core Antibody IgM Negative Negative 05/29/2022 12:[address] [facility] Blood Venous blood specimen / Unknown Venipuncture / Unknown 05/29/2022 10:58 AM EDT 05/29/2022 10:58 AM EDT Angeli GORMAN LAB BLOOD ORDERABLES Final Resul t [facility] [address] [place] [address] from Last 3 Months or Most Recently Relevant to Health Maintenance Insurance [facility] MEDIC[facility] Care Teams Wound Care Nurse Relationship Specialty Start Date End Date Иван Gonzales MD [address] [place] [address] PCP - General 02/22/21
--- OUTSIDE RECORDS SUMMARY | 2025-04-18 09:31 | XMS_ITS | Encounter Summary ---
Author Organization [facility] Address [address] [place] [address] Care Team Providers Care Drying Room Attendant Name Role Phone Иван Gonzales MD Primary Care Provider [phone] Reason for Referral * Consultation (Routine) - Closed Specialty Diagnoses / Procedures Referred By Contsalma rangel Referred To Contact Rheumatology Diagnoses Elevated rheumatoid factor Christos Martinez APRN [address] [place] [address] Phone: tel: fax: Referral ID Status Reason Start Date Expiration Date V isits Requested Visits Authorized [id number] Closed Specialty Services Required 04/09/2022 10/09/2023 1 1 Encounter Details Date Type Department Care Team (Late st Contact Info) Description 04/09/2022 Community Orders Community Practice [address] [place] [address] Christos Martienz APRN [address] [place] [address] Elevated rheumatoid factor (Primary Dx) Social History Tobacco Use Types Packs/Day Years Used Date Smoking Tobacco: Every Day Alcohol Use Standard Drinks/Week Comments Yes 0 (1 standard drink = 0.6 oz pur e alcohol) Sex and Gender Information Value Date Recorded Sex Assigned at Not on file Legal Sex Male 7:58 PM EDT Gender Identity Not on file Sexual Orientation Not on file documented as of this encounter Plan of Treatment Scheduled Referrals Name Type Priority Associated Diagnoses Order Schedule Ambulatory referral to Rheumatology Outpatient Referral Routine Elevated rheumatoid factor Expected: 04/09/2022 (Approximate), Expires: 07/10/2022 documented as of this encounter Visit Diagnoses Diagnosis Elevated rheumatoid factor- Primary Other and unspecified nonspecific immunological findings documented in this encounter Care Teams Drying Room Attendant Relationship Specialty Start Date End Date Иван Gonzales MD [address] [place] [address] PCP - General 02/22/21 documented as of this encounter
--- NOTE | 2025-04-18 09:45 | CT_ITS ---
FINAL REPORT TECHNIQUE: Thin section axial images were obtained from the lung apices to the upper abdomen by computed tomography. Reformatted images were obtained and reviewed. This study was performed with techniques to keep radiation doses al low as reasonably achievable (ALARA). Individualized dose reduction techniques using automated exposure control or adjustment of mA and/or kV according to the patient's size were employed. CLINICAL HISTORY: lung cancer screening former smoker quit 4 years ago, 1ppd x53 years COMPARISON: Prior LDCT 09/11/2023, prior CT of the chest 05/10/2024 FINDINGS: CHEST CT LOW DOSE 75-year-old male, 16-awbz-xosm history of smoking, who quit 4 years ago CTDI vol (mGy): 2.90 DLP (mGy-cm): 106.55 There is no axillary adenopathy. There is no mediastinal or hilar mass or adenopathy. The heart is normal in size. There is no pericardial or pleural effusion. There are advanced changes of centrilobular emphysema and mild pulmonary scarring. Lung window images demonstrate multiple nodules, with a posterior right upper lobe nodule best seen on image #11 of series 3, similar to the prior exam. There is a noncalcified nodule in the superior left lower lobe, 11 mm in size, best seen on image #30 of series 3, also stable. There is a pleural-based focus of the anterolateral right middle lobe, 6 mm in size, best seen on image #58 of series 3, stable. Limited images of the upper abdomen demonstrate small calcifications in the head of the pancreas that may represent changes of chronic pancreatitis. IMPRESSION: Lung-RADS category 2. Recommend 12 month follow up low dose chest CT. Reviewed, Interpreted and Dictated by Catracho De Oliveira MD Transcribed by Flower Amaya Authenticated and [facility]
== END 2025-04-18 23:59 | disposition home or self-care (01) ==
LOC: RAD 09:30
PROVIDERS: PCP Nurse Practitioner Family; Visit Provider Internal Medicine Pulmonary Disease
DX: J43.2 Centrilobular emphysema (principal); J98.4 Other disorders of lung; K86.89 Other specified diseases of pancreas; R91.8 Other nonspecific abnormal finding of lung field; Z12.2 Encounter for screening for malignant neoplasm of respiratory organs; Z87.891 Personal history of nicotine dependence
CPT/HCPCS: 71271

== ENCOUNTER 2025-05-12 10:09 | Outpatient (CLI) | payer MEDICARE, SELFPAY ==
--- OUTSIDE RECORDS SUMMARY | 2025-04-05 10:30 | XMS_ITS | Encounter Summary ---
Author Organization Healthcare Address [address] [place] [address] Care Team Providers Care Baker Chef Name Role Phone Иван Gonzales MD Primary Care Provider [phone] Reason for Visit * Reason Comments Rheumatoid Arthritis Follow-up Encounter Details Date Type Department Care Team (Latest Contact Info) Description 04/05/2025 10:30 AM EDT Office Visit [facility] [address], [address] [place] [address] Nikolas Ellis MD [address] [place] [address] High risk medications (not anticoagulants) [...] encounter Miscellaneous Notes * Patient Instructions - Nikolas Ellis MBBS - 04/05/2025 10:30 AM EDT Please [...] rays today RTC [address] Ellis * Addendum Note - Nikolas Ellis MD - 04/05/2025 10:30 AM EDTAddended by: NIKOLAS ELLIS on: 05/09/2025 05:04 PM Modules accepted: Orders * Progress Notes - Nikolas Ellis MBBS - 04/05/2025 10:30 AM EDT Images [...] controlled. He gets his RTX infusions at [facility] and he thinks last infusion was around [...] of Lef and rituximab, labs done Interim Hx/04/05/2025 Accompanied with her younger daughter today. He [...] in hands and OA. Referral with + DIE STAMPING PRESS OPERATOR. At , MARLENE + 1:80 homogenous, subserologies [...] and chest -Get records from his local outbound telemarketing representative #Positive MARLENE MARLENE 1:80 homogenous 05/2022, sub serology SSA, SSB, SM, DIE STAMPING PRESS OPERATOR, SCL 70, dsDNA negative. Normal C3 and [...] Division of Rheumatology Department of Internal Medicine [facility] Cosigned by Stacie Arias MD at [...] Parts of this note were dictated using Scal[employer] Direct voice recognition software. As a result, errors may occur. When identified, these account advisor errors are corrected, but while every attempt is made to prevent/correctthese, errors may still exist. Stacie Arias MD. Lamina Searcher Division of Rheumatology Department of Internal Medicine [facility] documented in this encounter Plan of Treatment Upcoming Encounters Date Type Department Care Team (Late st Contact Info) Description 06/15/2025 9:30 AM EDT Office Visit [facility] [address], [address] [place] [address] Nikolas Ellis MD [address] [phone] 09/14/2025 11:00 AM EST Office Visit [facility] [address], [address] [place] [phone] Nikolas Ellis MD [address] [phone] Scheduled Orders Name Type Priority Associated Diagnoses Orde r Schedule C-reactive protein Lab Routine High risk medications (not anticoagulants) long-term use Weight loss Ordered: 05/09/2025 CBC and differential Lab Routine High risk medications (not anticoagulants) long-term use Weight loss q 3 months for 4 Occurrences starting 05/09/2025 until 11/09/2026 Immunofixation Electrophoresis Lab Routine High risk medications (not anticoagulants) long-term use Weight loss Ordered: 05/09/2025 Comprehensive metabolic panel Lab Routine High risk medications (not anticoagulants) long-term use Weight loss q 3 months for 4 Occurrences starting 05/09/2025 until 11/09/2026 Sedimentation Rate, Automated Lab Routine High risk medications (not anticoagulants) long-term use Weight loss Ordered: 05/09/2025 Protein electrophoresis, serum Lab Routine High risk medications (not anticoagulants) long-term use Weight loss Ordered: 05/09/2025 Immunofixation Electrophoresis Lab Routine High risk medications (not anticoagulants) long-term use Weight loss Ordered: 05/09/2025 QIG, Serum Lab Routine High risk medications (not anticoagulants) long-term use Weight loss Ordered: 05/09/2025 Protein Electrophoresis, Serum Lab Routine High risk medications (not anticoagulants) long-term use Weight loss Ordered: 05/09/2025 Total Protein, Serum Lab Routine High risk medications (not anticoagulants) long-term use Weight loss Ordered: 05/09/2025 documented as of this encounter Results * [...] Allen Liz MD on 04/05/2025 1:18 PM Mariela Burciaga MD IMG XR PROCEDURES [...] use of other medications Seropositive rheumatoid arthritis ([facility]) documented in this encounter Additional Health Concerns Assessment Noted Time A fall risk assessment has been complete d for the patient 04/05/2025 10:47 AM EDT A Body Mass Index follow-up plan has been documented for the patient 04/05/2025 12:11 PM EDT documented as of this encounter Care Teams Baker Chef Relationship Specialty Start Date End Date Иван Gonzales MD [address] [place] [address] PCP - General 02/22/21 documented as of this encounter
--- OUTSIDE RECORDS SUMMARY | 2025-04-05 12:20 | XMS_ITS | Encounter Summary ---
Author Organization [facility] Address [address] [place] [address] Care Team Providers Care Hospital Security Officer Name Role Phone Иван Gonzales MD Primary Care Provider [phone] Encounter Details Date Type Department Care Team (Latest Contact Info) Description 04/05/2025 12:20 PM EDT - 04/05/2025 11:59 PM EDT Hospital Encounter [facility] [address], [address] [place] [phone] Weight loss; High risk medications (not anticoagulants) [...] as of this encounter Plan of Treatment Upcoming Encounters Date Type Department Care Team (Late st Contact Info) Description 06/15/2025 9:30 AM EDT Office Visit [facility] Medicine Specialties [address] [place] [address], [address] [place] [phone] Rosanna Cárdenas MD [address] [phone] 09/14/2025 11:00 AM EST Office Visit [facility] Medicine Specialties [facility] [address] [place] [phone] Rosanna Cárdenas MD [address] [phone] documented as of this encounter Procedures Procedure Name Priority Date/Time Associated Diagnosis Comments XR HAND WRIST BILATERAL 2 VIEWS Routine 04/05/2025 12:54 PM EDT High risk medications (not anticoagulants) long-term use Seropositive rheumatoid arthritis (CMS/HCC) XR CHEST 2 VIEWS Routine 04/05/2025 12:5 [...] signing this report, I, the attending physician, gordyat I have personally reviewed the images/data for [...] documented as of this encounter Care Teams Hospital Security Officer Relationship Specialty Start Date End Date Иван Gonzales MD [address] [place] [address] PCP - General 02/22/21 documented as of this encounter
--- OUTSIDE RECORDS SUMMARY | 2025-05-12 10:12 | XMS_ITS | Encounter Summary ---
Author Organization [facility] Address [address] [place] [address] Care Team Providers Care Bakery Team Member Name Role Phone Иван Gonzales MD Primary Care Provider + [phone] Encounter Details Date Type Department Care Team (Late st Contact Info) Description 05/09/2025 Telephone [facility] E [facility] [address] [place] [address] Rosanna Cárdenas MD [facility] E [address] [place] [address] Social History Tobacco Use Types Packs/Day Years [...] on file documented as of this encounter Miscellaneous Notes * Telephone Encounter - Rosanna Cárdenas MD - 05/09/2025 4:59 PM EDT Called pt to discuss blood work and X rays; imaging with some progression in erosions. Clinically, seemed like well under control. Blood work is still pending though. Will send it [facility] to [facility] now, unclear as to why he didn't complete it when he was in office. Can potentially change arava to Methotrexate and maintain on rituximab. Will schedule for an earlier follow up as well. Thank you, Isabella Lau;B.S. Division of Rheumatology Department of Internal Medicine [facility] documented in this encounter Plan of Treatment Upcoming Encounters Date Type Department Care Team (Late st Contact Info) Description 06/15/2025 9:30 AM EDT Office Visit [facility] [address] [place] [address] Rosanna Cárdenas MD [address] [address] 09/14/2025 11:00 AM EST Office Visit [facility] [address] [place] [address] Rosanna Cárdenas MD [address] [address] documented as of this encounter Visit Diagnoses Not on filedocumented in this encounter Additional Health Concerns Assessment Noted Time A fall risk assessment has been complete d for the patient 04/05/2025 10:47 AM EDT A Body Mass Index follow-up plan has been documented for the patient 04/05/2025 12:11 PM EDT documented as of this encounter Care Teams Bakery Team Member Relationship Specialty Start Date End Date Иван Gonzales MD [address] [place] [address] PCP - General 02/22/21 documented as of this encounter
--- OUTSIDE RECORDS SUMMARY | 2025-05-12 10:12 | XMS_ITS | Encounter Summary ---
Author Organization [facility] Address [address] [place] [address] Care Team Providers Care Pickle Maker Name Role Phone Иван Gonzales MD Primary Care Provider [phone] Reason for Referral * Consultation (Routine) - Closed Specialty Diagnoses / Procedures Referred By Contsalma t Referred To Contact Rheumatology Diagnoses Elevated rheumatoid factor Christos Martinez APRN [address] [place] [address] Phone: tel: fax: Referral ID Status Reason Start Date Expiration Date V isits Requested Visits Authorized [id number] Closed Specialty Services Required 04/09/2022 10/09/2023 1 1 Encounter Details Date Type Department Care Team (Late st Contact Info) Description 04/09/2022 [facility] [address] [place] [address] Christos Martinez APRN [address] [place] [address] Elevated rheumatoid factor (Primary Dx) Social History [...] Description 06/15/2025 9:30 AM EDT Office Visit [facility] [address] [place] [address] Rosanna Cárdenas MD [address] [address] 09/14/2025 11:00 AM EST Office Visit [facility] [address] [place] [address] Rosanna Cárdenas MD [address] [address] Scheduled Referrals Name Type Priority Associated Diagnoses Order Schedule Ambulatory referral to Rheumatology Outpatient Referral Routine Elevated rheumatoid factor Expected: 04/09/2022 (Approximate), Expires: 07/10/2022 documented as of this encounter Visit Diagnoses Diagnosis Elevated rheumatoid factor- Primary Other and unspecified nonspecific immunological findings documented in this encounter Care Teams Pickle Maker Relationship Specialty Start Date End Date Иван Gonzales MD [address] [place] [address] PCP - General 02/22/21 documented as of this encounter
--- OUTSIDE RECORDS SUMMARY | 2025-05-12 10:12 | XMS_ITS | Encounter Summary ---
Author Organization [facility] Address [address] [place] [address] Care Team Providers Care Parole Hearing Officer Name Role Phone Иван Gonzales MD Primary Care Provider [phone] Encounter Details Date Type Department Care Team [...] Description 06/15/2025 9:30 AM EDT Office Visit [facility] Specialties [address] [place] [address] Rosanna Cárdenas MD [address] [address] 09/14/2025 11:00 AM EST Office Visit [facility] [address] [place] [address] Rosanna Cárdenas MD [address] [address] documented as of this encounter Visit Diagnoses Not on filedocumented in this encounter Additional Health Concerns Assessment Noted Time A fall risk assessment has been complete d for the patient 04/05/2025 10:47 AM EDT A Body Mass Index follow-up plan has been documented for the patient 04/05/2025 12:11 PM EDT documented as of this encounter Care Teams Parole Hearing Officer Relationship Specialty Start Date End Date Иван Gonzales MD [address] [place] [address] PCP - General 02/22/21 documented as of this encounter
--- OUTSIDE RECORDS SUMMARY | 2025-05-12 10:12 | XMS_ITS | Encounter Summary ---
Author Organization [facility] Address [address] [place] [address] Care Team Providers Care Salesperson Furniture Name Role Phone Иван Gonzales MD Primary Care Provider + [phone] Encounter Details Date Type Department Care Team ([facility] st Contact Info) Description 05/09/2025 Results Follow-Up [facility] [address] [facility], [address] [place] [address] Rosanna Cárdenas MD [address] [facility] [address] Fl [address] [place] [address] Social History Tobacco Use Types [...] Description 06/15/2025 9:30 AM EDT Office Visit [facility] [address] [place] [address] Rosanna Cárdenas MD [address] [address] 09/14/2025 11:00 AM EST Office Visit [facility] [address] [place] [address] Rosanna Cárdenas MD [address] [address] documented as of this encounter Visit Diagnoses Not on filedocumented in this encounter Additional Health Concerns Assessment Noted Time A fall risk assessment has been complete d for the patient 04/05/2025 10:47 AM EDT A Body Mass Index follow-up plan has been documented for the patient 04/05/2025 12:11 PM EDT documented as of this encounter Care Teams Salesperson Furniture Relationship Specialty Start Date End Date Иван Gonzaels MD [address] [place] [address] PCP - General 02/22/21 documented as of this encounter
--- OUTSIDE RECORDS SUMMARY | 2025-05-12 10:12 | XMS_ITS | Clinical Summary ---
Author Organization [facility] Address [address] [place] [address] Care Team Providers Care Center Sales And Service Associate Name Role Phone Иван Gonzales MD Primary Care Provider [phone] Allergies No known active allergies Medications Fluticasone Propionate (FLONASE NA) Administer 1 spray into affected nostril(s) 1 (one) time each day. Active VITAMIN E EX Take 1 tablet by mouth 1 (one) time each day. Active albuterol 108 (90 Base) MCG/ACT inhaler Inhale 1 puff 1 (one) time each day. 2 Active Ascorbic Acid (vitamin C) 250 MG tablet Take 2 tablets (500 mg) by mouth 1 (one) time each day. Active cyanocobalamin (Vitamin B-12) 100 MCG tablet Take 1 tablet (100 mcg) by mouth 1 (one) time each day. Active Breo Ellipta 100-25 MCG/INH inhaler Inhale 1 puff if needed. 2 Active levothyroxine (Synthroid, Levoxyl) 112 MCG tablet Take 1 tablet (112 mcg) by mouth 1 (one) time each day. 2 Active CANNABIDIOL PO Take 20 mg by mouth 1 (one) time each day. Active tamsulosin (Flomax) 0.4 MG 24 hr capsule 3 Active azelastine (Astelin) 0.1 % nasal spray 4 Active cetirizine (ZyrTEC) 10 MG tablet 4 Active Melatonin 5 MG tablet tablet Take by mouth if needed for sleep. Active budesonide (Pulmicort) 0.5 MG/2ML nebulizer solution 4 Active Trelegy Ellipta 100-62.5-25 MCG/ACT aerosol powder 4 Active ipratropium-alb uterol (Duo-Neb) 0.5-2.5 mg/3 mL nebulizer solution 4 Active oxybutynin XL (Ditropan-XL) 10 MG 24 hr tablet 4 Active meloxicam (Mobic) 7.5 MG tablet TAKE 1 TABLET ONE TIME DAILY FOR BACK PAIN 90 tablet 5 Active montelukast (Singulair) 10 MG tablet 5 Active tadalafil (Cialis) 5 MG tablet 5 Active Multiple Vitamin (MULTIVITAMINS PO) Take by mouth. Activ e leflunomide (Arava) 10 MG tablet Take 1 tablet by mouth daily. 30 tablet 3 5 Active Active Problems Problem Noted Date Diagnosed Date Positive MARLENE (antinuclear antibody) 05/14/2023 High risk medications (not anticoagulants) long- term use 05/14/2023 Osteoarthritis 05/14/2023 Rheumatoid arthritis involvi ng multiple sites with positive rheumatoid factor 10/17/2022 Encounters Date Type Department Care Team Description 05/09/2025 Results Follow-Up [facility] E [facility], [address] [place] [address] Rosanna Cárdenas MD 05/09/2025 Telephone [facility] E [place], [address] [address] Rosanna Cárdenas MD 04/05/2025 12:20 PM EDT - 04/05/2025 11:59 PM EDT Hospital Encounter [facility] [address] [place] [address] Weight loss; High risk medications (not anticoagulants) long-term use; Seropositive rheumatoid arthritis ([facility]) Discharge Disposition: Home or Self Care 04/05/2025 10:30 AM EDT Office Visit [facility] [address] [place] [address] Rosanna Cárdenas MD High risk medications (not anticoagulants) long-term use (Primary Dx); Seropositive rheumatoid arthritis (CMS/HCC); Weight loss; Positive MARLENE (antinuclear antibody); Chronic fatigue; Osteoarthritis, unspecified osteoarthritis type, unspecified site; Healthcare maintenance 04/05/2025 Travel from Last 3 Months Immunizations Immunization Administration Dates Next Due Influenza, High-dose, Split Virus, Trivalent, Injectable, preservative free 08/17/2024,08/28/2021 Influenza, high-dose, quadrivalent 08/19/2023,,08/28/2021 Influenza, injectable, quadrivalent 07/08/2017 Influenza, seasonal, injectable 07/26/2018 [employer] COVID-19 Vac cine (Purple Cap) 12+ 07/10/2021,01/07/2021,12/10/2020 [...] 04/05/2025 10:45 AM EDT Plan of Treatment Upcoming Encounters Date Type Department Care Team (Late st Contact Info) Description 06/15/2025 9:30 AM EDT Office Visit [facility] [address], [address] [place] [address] Rosanna Cárdenas MD [address] [address] 09/14/2025 11:00 AM EST Office Visit [facility] [address] [place] [address] Rosanna Cárdenas MD [address] [address] Health Maintenance Due Date Last Done Comments [facility]-Medicare Annual Wellness (AWV) 1950 [facility]-/Child/Adol SDOH Screenings 1952 [facility]- SDOH Screenings 1970 [facility]-Adult SDOH Screenings 1970 [facility]-DTaP,Tdap,and Td Vaccines (1 - Tdap) 1971 CT Colonography 1997 Colonoscopy 1997 FIT-DNA 1997 FIT 1997 FOBT 1997 Sigmoidoscopy 1997 [facility]-Colorectal Cancer Screening 1997 [facility]-Lung Cancer Screening 2002 [facility]-RSV Vaccine: 60+ Years or (1 - Risk 60-74 years 1-dose series) 2012 [facility]-Abdominal Aortic Aneurysm (AAA) Screening 2017 [id number] Vaccine ( - season) 2024 07/10/2021, 01/07/2021, 12/10/2020 [facility]-Influenza [...] 04/05/2025 12:5 4 PM EDT Weight loss ACUTE HEPATITIS PANEL Routine 05/29/2022 10:58 AM [...] IMG XR PROCEDURES Final Resul t * Acute Hepatitis Panel (05/29/2022 10:58 AM EDT) Hepatitis B Surf Antigen Negative Negative 05/29/2022 12:53 PM EDT [facility] Hepatitis C Antibody Negative Negative 05/29/2022 12:53 PM EDT [facility] Hepatitis A Antibody IgM Negative Negative 05/29/2022 12:53 PM EDT [facility] Hepatitis B Core Antibody IgM Negative Negative 05/29/2022 12:53 PM EDT [facility] Blood Venous blood specimen / Unknown Venipuncture / Unknown 05/29/2022 10:58 AM EDT 05/29/2022 10:58 AM EDT [facility] BLOOD ORDERABLES Final Resul t [facility] [address] [place] [phone] from Last 3 Months or Most Recently Relevant to Health Maintenance Insurance [employer] Care Teams Center Sales And Service Associate Relationship Specialty Start Date End Date Иван Gonzales MD [address] [place] [address] PCP - General 02/22/21
[2025-05-12 10:37] LABS: Hematocrit 40.0 % (42.0-52.0); Hemoglobin 13.7 g/dL (14.1-18.0); Immature Granulocytes % 0.1 %; Mean Corpuscular HGB Conc 34.3 g/dL (31.8-35.4); Mean Corpuscular Hemoglobin 30.9 pg (27.0-31.2); Mean Corpuscular Volume 90.1 fl (80-94); Nucleated Red Blood Cells % 0 %; Platelet Count 279 K/mm3 (142-424); Red Blood Count 4.44 M/mm3 (4.60-6.20); Red Cell Distribution Width-SD 44.7 fL; White Blood Count 6.8 K/mm3 (4.8-10.8)
[2025-05-12 11:00] LABS: Alanine Aminotransferase 15 U/L (12-78); Albumin Level 3.7 g/dl (3.5-5.0); Albumin/Globulin Ratio 1.7 (1.1-1.8); Alkaline Phosphatase 85 U/L (38-126); Anion Gap 5.6 mEq/L (5-15); Aspartate Amino Transferase 25 U/L (17-59); Bilirubin,Total 0.5 mg/dl (0.2-1.3); Blood Urea Nitrogen 9 mg/dl (9-20); Calcium 9.4 mg/dl (8.4-10.2); Carbon Dioxide 30 mmol/L (22.0-30.0); Chloride 101 mmol/L (98-107); Creatinine,Serum 0.90 mg/dl (0.66-1.25); Estimated Glomerular Filt Rate 83 ml/min (>60); GFR (African American) 100 ML/MIN (>60); Globulin 2.2 g/dL (1.3-3.2); Glucose 117 mg/dl (74-100); Potassium 3.6 mmoL/L (3.5-5.1); Sodium 133 mmol/L (136-145); Total Protein,Serum 5.9 g/dl (6.3-8.2)
[2025-05-12 12:49] LABS: C-Reactive Protein 5.2 mg/L (0-4)
[2025-05-15 16:12] LABS: Albumin 3.5 g/dL (2.9-4.4); Alpha-1-Globulin 0.3 g/dL (0.0-0.4); Alpha-2-Globulin 0.9 g/dL (0.4-1.0); Gamma Globulin 0.8 g/dL (0.4-1.8)
[2025-05-16 14:12] LABS: Immunoglobulin A, Qn 195 mg/dL (61-437); Immunoglobulin G, Qn 743 mg/dL (603-1613); Immunoglobulin M, Qn 194 mg/dL (15-143)
== END 2025-05-12 23:59 | disposition home or self-care (01) ==
PROVIDERS: PCP Nurse Practitioner Family; Visit Provider Student in an Organized Health Care Education/Training Program
DX: R63.4 Abnormal weight loss (principal); Z79.899 Other long term (current) drug therapy
CPT/HCPCS: 36415; 80053; 82784; 84155; 84165; 85025; 85651; 86140; 86334

== ENCOUNTER 2025-08-28 08:55 | Outpatient (CLI) | payer MEDICARE, SELFPAY ==
[2025-08-28] VITALS (7 sets, daily range): BP systolic 164–178; BP diastolic 69–76; PULSE 63–71; RESP 18; O2SAT 98
[2025-08-28] MEDS: METHYLPREDNISOLONE SOD SUCC 125MG VIAL 125 MG IV (09:15)
[2025-08-28] MEDS: ACETAMINOPHEN 325MG TAB 650 MG PO (09:15)
[2025-08-28 10:30] LABS: Hematocrit 39.8 % (42.0-52.0); Hemoglobin 13.7 g/dL (14.1-18.0); Immature Granulocytes % 0.2 %; Mean Corpuscular HGB Conc 34.4 g/dL (31.8-35.4); Mean Corpuscular Hemoglobin 32.7 pg (27.0-31.2); Mean Corpuscular Volume 95.0 fl (80-94); Nucleated Red Blood Cells % 0 %; Platelet Count 328 K/mm3 (142-424); Red Blood Count 4.19 M/mm3 (4.60-6.20); Red Cell Distribution Width-SD 52.4 fL; White Blood Count 8.8 K/mm3 (4.8-10.8)
== END 2025-08-28 23:59 | disposition home or self-care (01) ==
LOC: INF 08:56
PROVIDERS: PCP Nurse Practitioner Family; Visit Provider Internal Medicine Rheumatology
DX: M05.79 Rheumatoid arthritis with rheumatoid factor of multiple sites without organ or systems involvement (principal)
CPT/HCPCS: 85025; 96413; 96415; J2919; J7040; J9312

== ENCOUNTER 2025-09-11 09:44 | Outpatient (CLI) | payer MEDICARE, SELFPAY ==
[2025-09-11] VITALS (8 sets, daily range): BP systolic 147–180; BP diastolic 71–83; PULSE 74–80; RESP 21; TEMP 37.1; O2SAT 98
--- OUTSIDE RECORDS SUMMARY | 2025-09-11 09:47 | XMS_ITS | Encounter Summary ---
Author Organization [facility] Address [address] [place] [address] Care Team Providers Care Ice Resurfacing Machine Operators Name Role Phone Иван Gonzales MD Primary Care Provider + [phone] Encounter Details Date Type Department Care Team (Late Contact Info) Description 08/29/2025 Orders Only [facility]ties [address] [place] [address] Provider, [place] [phone] Social History Tobacco Use Types Packs/Day Years [...] alcohol? 4 or more times a week 06/15/2025 Q2: How many drinks containi ng alcohol do you have on a typical day when you are drinking? 1 or 2 Q3: How often do you have si x or more drinks on one occasion? Never 06/15/2025 PHQ-2A Answer Date Recorded Patient Health Questionnaire-2 Score 0 05/14/2023 Sex and Gender Information Value Date Recorded Sex Assigned at Not on file Legal Sex Male 7:58 PM EDT Gender Identity Not on file Sexual Orientation Not on file documented as of this encounter Plan of Treatment Upcoming Encounters Date Type Department Care Team (Late st Contact Info) Description 09/14/2025 11:00 AM EST Office Visit [facility] [address] [place] [address] Rosanna Cárdenas MD [address] [place] [address] documented as of this encounter Visit Diagnoses Not on filedocumented in this encounter Additional Health Concerns Assessment Noted Time A fall risk assessment has been complete d for the patient 06/15/2025 9:56 AM EDT A Body Mass Index follow-up plan has been documented for the patient 06/15/2025 10:32 AM EDT documented as of this encounter Care Teams Ice Resurfacing Machine Operators Relationship Specialty Start Date End Date Иван Gonzales MD [address] [place] [address] PCP - General 02/22/21 documented as of this encounter
--- OUTSIDE RECORDS SUMMARY | 2025-09-11 09:47 | XMS_ITS | Encounter Summary ---
Author Organization [facility] Address [address] [place] [address] Care Team Providers Care Unit Supervisor Name Role Phone Иван Gonzales MD Primary Care Provider [phone] Reason for Referral * Consultation (Routine) - Closed Specialty Diagnoses / Procedures Referred By Contsalma t Referred To Contact Rheumatology Diagnoses Elevated rheumatoid factor Christos Martinez APRN [address] [place] [address] Phone: tel: fax: Referral ID Status Reason Start Date Expiration Date V isits Requested Visits Authorized [id number] Closed Specialty Services Required 04/09/2022 10/09/2023 1 1 Encounter Details Date Type Department Care Team (Late Contact Info) Description 04/09/2022 [facility] [address] [place] [address] Christos Martinez APRN [address] [place] [address] Elevated rheumatoid factor (Primary Dx) Social History [...] Description 09/14/2025 11:00 AM EST Office Visit [facility] [address] [place] [address] Rosanna Cárdenas MD [address] [facility] 3rd [facility] [address] [place] [address] Scheduled Referrals Name Type Priority Associated Diagnoses Order Schedule Ambulatory referral to Rheumatology Outpatient Referral Routine Elevated rheumatoid factor Expected: 04/09/2022 (Approximate), Expires: 07/10/2022 documented as of this encounter Visit Diagnoses Diagnosis Elevated rheumatoid factor- Primary Other and unspecified nonspecific immunological findings documented in this encounter Care Teams Unit Supervisor Relationship Specialty Start Date End Date Иван Gonzales MD [address] [place] [address] PCP - General 02/22/21 documented as of this encounter
--- OUTSIDE RECORDS SUMMARY | 2025-09-11 09:47 | XMS_ITS ---
Author Organization [facility] Address [address] [place] [address] Care Team Providers Care Spinner Operator Name Role Phone Иван Gonzales MD Primary Care Provider [phone] Active Problems Problem Noted Date Diagnosed Date Positive MARLENE (antinuclear antibody) 05/14/2023 Rheumatoid arthritis involvi ng multiple sites with positive rheumatoid factor 10/17/2022 Current Treatment and Therapy Plans No current plan information found. Other Current Plans riTUXimab Day 1 and Day 15* Plan Start Date:08/11/2025 Plan Provider:Rosanna Cárdenas MD Linked Problems Rheumatoid arthritis involvi ng multiple sites with positive rheumatoid factor ([facility]) Treatment Medications No medications scheduled. Past Treatment and Therapy Plans Resolved Problems Problem Noted Date Diagnosed Date Resolved Date Allergic rhinitis 06/15/2025 06/15/2025 Chronic cough 06/15/2025 06/15/2025 Contact dermatitis 06/15/2025 COPD (chronic obstructive pulmonary disease) 06/15/2025 Hypothyroid 06/15/2025 06/15/2025 Vertigo 06/15/2025 06/15/2025 Smoking greater than 30 pack years 06/15/2025 06/15/2025 Skin cancer 06/15/2025 06/15/2025 Lung nodule 06/15/2025 06/15/2025 High risk medications (not a nticoagulants) long-term use 05/14/2023 07/02/2025 Osteoarthritis 05/14/2023 07/02/2025 Anxiety 01/06/2015 06/15/2025 Injury of peroneal nerve 01/06/201501/2025 Neck pain 01/06/2015 06/15/2025 Lower back pain 01/06/2015 06/15/2025
--- OUTSIDE RECORDS SUMMARY | 2025-09-11 09:47 | XMS_ITS | Encounter Summary ---
Author Organization [facility] Address [address] [place] [address] Care Team Providers Care Contracts Attorney Name Role Phone Иван Gonzales MD Primary Care Provider + [phone] Encounter Details Date Type Department Care Team (Late st Contact Info) Description 01/08/2024 Telephone [facility] [place] [facility] [address] [place] [address] Leyla Muñoz, PharmD None None Social History Tobacco Use Types Packs/Day Years Used Date Smoking Tobacco: Former Cigarettes 1 50 0 03/26/1967 - 03/26/2017 Smokeless Tobacco: Never Alcohol Use Standard Drinks/Week Comments Yes 0 [...] Score Answer Date of Assessment Author 4 06/15/2025 9:51 AM EDT Taylor Lanza * Question Answer Date of Assessment Author Q1: How often do you have a drink containing alcohol? 4 or more times a week 06/15/2025 9:51 AM EDT Taylor Lanza Q2: How many drinks containing alcohol do you have on a typical day when you are drinking? 1 or 2 06/15/2025 9:51 AM EDT Moe Lanza Q3: How often do you have six or more drinks on one occasion? Never 06/15/2025 9:51 AM EDT Moe Lanza R * Over the past 2 weeks, how often have you been bothered by any of the following problems? Question Answer Date of Assessment Author Little interest or pleasure in doing things Not at all 04/05/2025 10:47 AM EDT Denia Tidwell Feeling down, depressed, or hopeless Not at all 03/13 10:47 AM EDT Denia Tidwell Patient Health Questionnaire-2 Score 0 03/13 10:47 AM EDT Denia Tidwell documented as of this encounter Miscellaneous Notes * Addendum Note - Dimitry Coleman PharmD - 08/11/2025 12:46 PM EDTAddended by: DIMITRY COLEMAN on: 08/11/2025 12:46 PM Modules accepted: Orders * Telephone Encounter - Caryl Lara CPhT - 08/11/2025 10:05 AM EDT Medicare B/Advantage Plan Authorization Information Specialty Medication: Rituxan Diagnosis Code: M05.79 J-code/CPT code/S code: J9312 Covered by Medicare B: Yes Does the diagnosis, dose, and frequency match an FDA approved dosing schedule? Yes, list prescribeddose/frequency: 1000mg day 1 and 15 Site of Care: [facility] Does patient have an Advantage Plan? Yes, NOTE Medicare B MUST cover for Advantage Plan to cover Advantage plan name: Roberto How was request submitted? Auto renewal Reference number: [id number] Follow-up phone: [phone] Authorization number: [id number] Approval dates: 10/12/2025-10/11/2026 documented in this encounter Plan of Treatment Upcoming Encounters Date Type Department Care Team (Late st Contact Info) Description 09/14/2025 11:00 AM EST [facility] [address] [place] [id number] Rosanna Cárdenas MD [address] [place] [phone] documented as of this encounter Visit Diagnoses Not on filedocumented in this encounter Additional Health Concerns Assessment Noted Time A fall risk assessment has been complete d for the patient 05/14/2023 9:24 AM EDT A Body Mass Index follow-up plan has been documented for the patient 05/14/2023 10:12 AM EDT documented as of this encounter Care Teams Contracts Attorney Relationship Specialty Start Date End Date Иван Gonzales MD [address] [phone] PCP - General 02/22/21 documented as of this encounter
--- OUTSIDE RECORDS SUMMARY | 2025-09-11 09:47 | XMS_ITS | Clinical Summary ---
Author Organization [facility] Address [address] [place] [address] Care Team Providers Care [place] Shoe Examiner Name Role Phone Иван Gonzales MD Primary Care Provider [phone] Allergies No known active allergies Medications Fluticasone [...] (Pulmicort) 0.5 MG/2ML nebulizer solution 4 Active ipratropium-alb uterol (Duo-Neb) 0.5-2.5 mg/3 mL nebulizer solution 4 Active oxybutynin XL (Ditropan-XL) 10 MG 24 hr tablet 4 Active meloxicam (Mobic) 7.5 MG tablet TAKE 1 TABLET ONE TIME DAILY FOR BACK PAIN 90 tablet 5 Active montelukast (Singulair) 10 MG tablet 5 Active tadalafil (Cialis) 5 MG tablet 5 Active Multiple Vitamin (MULTIVITAMINS PO) Take by mouth. Activ e cholecalciferol (Vitamin D3) 25 MCG (1000 UT) tablet Take 1 tablet by mouth daily. Active folic acid (Folvite) 1 MG tablet Take 1 tablet by mouth daily. 90 tablet 3 5 Active methotrexate 2.5 MG tablet Please take 4 pills per week and then 6 pills per week thereafter 30 tablet 3 5 Active Active Problems Problem Noted Date Diagnosed Date Positive MARLENE (antinuclear antibody) 05/14/2023 Rheumatoid arthritis involvi ng multiple sites with positive rheumatoid factor 10/17/2022 Resolved Problems Problem Noted Date Diagnosed Date [...] 01/06/2015 06/15/2025 Lower back pain 01/06/2015 06/15/2025 Encounters Date Type Department Care Team Description 08/29/2025 Orders Only [facility] Medicine Specialties [address] [place] [phone] Provider, Historical 06/19/2025 Results Follow-Up [facility] [address] [place] [address] Rosanna Cárdenas MD 06/15/2025 10:35 AM EDT - 06/15/2025 11:59 PM EDT Hospital Encounter [facility] Radiology [address], [address] [place] [phone] Chronic midline low back pain without sciatica Discharge Disposition: Home or Self Care 06/15/2025 9:30 AM EDT Office Visit [facility] Medicine Specialties [address] [place] [phone] Rosanna Cárdenas MD High risk medications (not anticoagulants) long-term use (Primary Dx); Seropositive rheumatoid arthritis (CMS/HCC); Chronic fatigue; Osteoarthritis, unspecified osteoarthritis type, unspecified site; Immunization counseling; Primary osteoarthritis involving multiple joints; Chronic midline low back pain without sciatica 06/15/2025 Telephone [facility] Medicine Specialties [address] [place] [phone] Cassandra Wilcox 06/15/2025 Travel from Last 3 Months Immunizations Immunization Administration Dates Next Due Influenza, High-dose, Split Virus, Trivalent, Injectable, preservative free 08/17/2024,08/28/2021 Influenza, high-dose, quadrivalent 08/19/2023,,08/28/2021 Influenza, injectable, quadrivalent 07/08/2017 Influenza, seasonal, injectable 07/26/2018 [facility] COVID-19 Vac cine (Purple Cap) 12+ 07/10/2021,01/07/2021,12/10/2020 [...] Sign Reading Time Taken Comments Blood Pressure 165/75 06/15/2025 9:47 AM EDT Pulse 65 06/15/2025 9:47 AM EDT Temperature 36.6 C (97.8 F) 04/05/2025 10:45 AM EDT Respiratory Rate 18 04/05/2025 10:4 5 AM EDT Oxygen Saturation 97% 06/15/2025 9:47 AM EDT Inhaled Oxygen Concentration - - Weight 75.2 kg (165 lb 12.6 oz) 06/15/2025 9:47 AM EDT Height 177.8 cm (5' 10 ) 06/15/2025 9:47 AM EDT Body Mass Index 23.79 06/15/2025 9:47 AM EDT Plan of Treatment Upcoming Encounters Date Type Department Care Team (Late st Contact Info) Description 09/14/2025 11:00 AM EST Office Visit [facility] [address], [address] [place] [address] Rosanna Cárdenas MD [address] [place] [address] Health Maintenance Due Date Last Done Comments [facility]-Medicare Annual Wellness (AWV) 1950 [facility]-/Child/Adol SDOH Screenings 1950 [facility]- SDOH Screenings 1970 [facility]-Adult SDOH Screenings 1970 [facility]-DTaP,Tdap,and Td Vaccines (1 - Tdap) 1971 CT Colonography 1997 Colonoscopy 1997 FIT-DNA 1997 FIT 1997 FOBT 1997 Sigmoidoscopy 1997 [facility]-Colorectal Cancer Screening 1997 Lung Cancer Screening Shared Decision Making 2002 [facility]-Lung Cancer Screening 2002 [facility]-RSV Vaccine: 60+ Years or (1 - Risk 60-74 years 1-dose series) 2012 [facility]-Abdominal Aortic Aneurysm (AAA) Screening 2017 [id number] Vaccine (2024- season) 2025 07/10/2021, 01/07/2021, 12/10/2020 [facility]-Influenza Vaccine (#1) 06/12/202508/17, [...] Name Priority Date/Time Associated Diagnosis Comments XR LUMBAR SPINE 2 OR 3 VIEWS Routine 06/15/2025 11:15 AM EDT Chronic midline low back pain without sciatica IVY SERUM, PATHOLOGIST INTERPRETATION Routine 06/15/2025 11:05 AM EDT High risk medications (not anticoagulants) long-term use Weight loss PROTEIN ELECTROPHORESIS, PATHOLOGIST INTERPRETATION Routine 06/15/2025 11:05 AM EDT High risk medications (not anticoagulants) long-term use Weight loss C-REACTIVE PROTEIN, PLASMA Routine 06/15/2025 11:05 AM EDT Seropositive rheumatoid arthritis (CMS/HCC) CBC WITH AUTO DIFFERENTIAL Routine 06/15/2025 11:05 AM EDT High risk medications (not anticoagulants) long-term use Seropositive rheumatoid arthritis (CMS/HCC) COMPREHENSIVE METABOLIC PANEL, PLASMA Routine 06/15/2025 11:05 AM EDT High risk medications (not anticoagulants) long-term use Seropositive rheumatoid arthritis (CMS/HCC) LYMPHOCYTE SUBSET ENUMERATION, TBNK Routine 06/15/2025 11:05 AM EDT High risk medications (not anticoagulants) long-term use TOTAL PROTEIN, SERUM Routine 06/15/2025 11:05 AM EDT High risk medications (not anticoagulants) long-term use Weight loss PROTEIN ELECTROPHORESIS, SERUM Routine 06/15/2025 11:05 AM EDT High risk medications (not anticoagulants) long-term use Weight loss QIG, SERUM Routine 06/15/2025 11:05 AM EDT High risk medications (not anticoagulants) long-term use Weight loss IMMUNOFIXATION ELECTROPHORESIS Routine 06/15/2025 11:05 AM EDT High risk medications (not anticoagulants) long-term use Weight loss PROTEIN ELECTROPHORESIS, SERUM Routine 06/15/2025 11:05 AM EDT High risk medications (not anticoagulants) long-term use Weight loss SEDIMENTATION RATE, AUTOMATED Routine 06/15/2025 11:05 AM EDT High risk medications (not anticoagulants) long-term use Weight loss IMMUNOFIXATION ELECTROPHORESIS Routine 06/15/2025 11:05 AM EDT High risk medications (not anticoagulants) long-term use Weight loss ACUTE HEPATITIS PANEL Routine 05/29/2022 10:58 AM EDT Elevated rheumatoid factor from Last 3 Months or Most Recently Relevant to Health Maintenance Results * XR Lumbar Spine 2 or 3 Views (06/15/2025 11:15 AM EDT) Anatomical Region Laterality Modality Spine, L-spine Digital Radiogra phy Impressions 06/15/2025 12:48 PM EDT 1. Severe degenerative disc changes at L5-S1 and moderate at L2-L3 and L4-L5 with normal vertebral alignment. 2. No fracture or bone destruction. CRITICAL RESULT: No. COMMUNICATION: Per this written report. Drafted by German Pabon MD on 06/15/2025 12:46 PM Final report signed by German Pabon MD on 06/15/2025 12:48 PM Narrative 06/15/2025 12:48 PM EDT CLINICAL INDICATION: DDD, injury, pain TECHNIQUE: XR LUMBAR SPINE 2 OR 3 VIEWS COMPARISON: None. FINDINGS: 2 views of the lumbar spine show disc space narrowing at L2-L3, L4-L5 and L5-S1 that is severe at L5-S1. Vertebral alignment is normal. No fracture or bone destruction. Mild degenerative changes of the bilateral sacroiliac joint. 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 Procedure Note German Pabon MD - 06/15/2025 CLINICAL INDICATION: DDD, injury, pain TECHNIQUE: XR LUMBAR SPINE 2 OR 3 VIEWS COMPARISON: None. FINDINGS: 2 views of the lumbar spine show disc space narrowing at L2-L3, L4-L5 andL5-S1 that is severe at L5-S1. Vertebral alignment is normal. No fractureor bone destruction. Mild degenerative changes of the bilateral sacroiliacjoint. 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 IMPRESSION: 1.Severe degenerative disc changes at L5-S1 and moderate at L2-L3 andL4-L5 with normal vertebral alignment. 2.No fracture or bone destruction. CRITICAL RESULT: No. COMMUNICATION: Per this written report. Drafted by German Pabon MD on 06/15/2025 12:46 PM Final report signed by German Pabon MD on 06/15/2025 12:48 PM us Rosanna Cárdenas MD IMG XR PROCEDURES Final Result * QIG, Serum (06/15/2025 11:05 AM EDT) IGA 196 75 - 400 mg/dL 06/15/2025 12:38 PM EDT [facility] IGG 785 720 - 1,589 mg/dL 06/15/2025 12:38 PM EDT [facility] IGM 202 35 - 225 mg/dL 06/15/2025 12:38 PM EDT [facility] Blood Venous blood specimen / Unknown Venipuncture / Unknown 06/15/2025 11:05 AM EDT 06/15/2025 11:06 AM EDT us Rosanna Cárdenas MD LAB BLOOD ORDERABLES Final Res ult [facility] [address] [place] [address] * Total Protein, Serum (06/15/2025 11:05 AM EDT) Total Protein 6.5 6.2 - 7.7 g/dL 06/15/2025 12:38 PM EDT [facility] Blood Venous blood specimen / Unknown Venipuncture / Unknown 06/15/2025 11:05 AM EDT 06/15/2025 11:06 AM EDT us Rosanna Cárdenas MD LAB BLOOD ORDERABLES Final Res ult [facility] [address] [place] [address] * Protein Electrophoresis, Serum (06/15/2025 11:05 AM EDT) Albumin Electrophoresis, Serum 4.0 3.6 - 4.7 g/dL 06/16/2025 2:55 AM EDT [facility] Alpha 1 Globulin Electrophoresis, Serum 0.3 0.2 - 0.4 g/dL 06/16/2025 2:55 AM EDT [facility] Alpha 2 Globulin Electrophoresis, Serum 0.8 0.5 - 0.9 g/dL 06/16/2025 2:55 AM EDT [facility] Beta 1 Globulin Electrophoresis, Serum 0.4 0.3 - 0.5 g/dL 06/16/2025 2:55 AM EDT [facility] Beta 2 Globulin Electrophoresis, Serum 0.3 0.2 - 0.5 g/dL 06/16/2025 2:55 AM EDT [facility] Gamma Globulin Electrophoresis, Serum 0.7 0.6 - 1.5 g/dL 06/16/2025 2:55 AM EDT [facility] Interpretation, Serum Protein Electrophoresis Pathology report to follow. 06/16/2025 2:55 AM EDT [facility] Blood Venous blood specimen / Unknown Venipuncture / Unknown 06/15/2025 11:05 AM EDT 06/15/2025 11:06 AM EDT us Rosanna Cárdenas MD LAB BLOOD ORDERABLES Final Res ult [facility] [address] [place] [address] * Immunofixation Electrophoresis (06/15/2025 11:05 AM EDT) Immunofixation Interpretation Pathology report to follow. 06/16/2025 2:06 PM EDT [facility] Blood Venous blood specimen / Unknown Venipuncture / Unknown 06/15/2025 11:05 AM EDT 06/15/2025 11:06 AM EDT us Rosanna Cárdenas MD LAB BLOOD ORDERABLES Final Res ult Performing Organization Address [facility] Co de Phone Number [facility] [address] [place] [address] * IVY serum, pathologist interpretation (06/15/2025 11:05 AM EDT) Clinical Diagnosis, IVY Serum seropositive erosive RA 06/19/2025 11:39 AM EDT [facility] Interpretation , IVY Serum There are no significant qualitative or quantitative abnormalities present in the IgG, IgA, IgM, kappa or lambda light chains as observed by immunofixation electrophoresis and immunochemical quantitation. A resident was involved in the service. I attest I examined the relevant preparations for the specimens and confirmed the diagnosis or interpretation. 06/19/2025 11:39 AM EDT [facility] Pathologist Signature, IVY Serum Reviewed by: Rufino Parra MD 06/19/2025 11:39 AM EDT [facility] LAB CP ASR DISCLAIMER Yes 06/19/2025 11:39 AM EDT [facility] Blood Venous blood specimen / Unknown Venipuncture / Unknown 06/15/2025 11:05 AM EDT 06/15/2025 11:06 AM EDT us Rosanna Cárdenas MD LAB PATHOLOGY ORDERABLES Final Result Performing Organization Address [facility]/ZIP Co de Phone Number [facility] [address] [place] [address] * Protein electrophoresis serum, pathologist interpretation (06/15/2025 11:05 AM EDT) Clinical Diagnosis, SPEP seropositive erosive RA 06/16/2025 11:55 AM EDT [facility] Interpretation , SPEP The total protein and serum protein electrophoretic fractions are within normal limits. A resident was involved in the service. I attest I examined the relevant preparations for the specimens and confirmed the diagnosis or interpretation. 06/16/2025 11:55 AM EDT [facility] Pathologist Signature, SPEP Reviewed by: Barbara Cardoso MD 06/16/2025 11:55 AM EDT [facility] LAB CP ASR DISCLAIMER Yes 06/16/2025 11:55 AM EDT [facility] Blood Venous blood specimen / Unknown Venipuncture / Unknown 06/15/2025 11:05 AM EDT 06/15/2025 11:06 AM EDT us Rosanna Cárdenas MD LAB PATHOLOGY ORDERABLES Final Result [facility] [address] [place] [address] * (ABNORMAL) Lymphocyte Subset Enumeration (TBNK) (06/15/2025 11:05 AM EDT) Percent CD3 79.5 57.5 - 83.1 % 06/16/2025 7:45 AM EDT [facility] Absolute CD3 1,377 860 - 2,670 cells/uL 06/16/2025 7:45 AM EDT [facility] Percent CD4 61.2 31.5 - 62.4 % 06/16/2025 7:45 AM EDT [facility] Absolute CD4 1,060 490 - 1,730 cells/uL 06/16/2025 7:45 AM EDT [facility] Percent CD8 11.9 9.5 - 38.3 % 06/16/2025 7:45 AM EDT [facility] Absolute CD8 206 160 - 1,070 cells/uL 06/16/2025 7:45 AM EDT [facility] Percent CD19 0.2(L) 6.0 - 24.2 % 06/16/2025 7:45 AM EDT [facility] Absolute CD19 4(L) 73 - 562 cells/uL 06/16/2025 7:45 AM EDT [facility] Percent CD16+CD56 20.1 5.2 - 30.4 % 06/16/2025 7:45 AM EDT [facility] Absolute CD16+CD56 348 110 - 680 cells/uL 06/16/2025 7:45 AM EDT [facility] CD4:CD8 Ratio 4.89 06/16/2025 7:45 AM EDT [facility] Blood Venous blood specimen / Unknown Venipuncture / Unknown 06/15/2025 11:05 AM EDT 06/15/2025 11:06 AM EDT us Rosanna Cárdenas MD LAB FLOW CYTOMETRY ORDERABLES Final Result Performing Organization Address City/[facility]/ZIP Co de Phone Number [facility] [address] [place] [address] * (ABNORMAL) Sedimentation Rate, Automated (06/15/2025 11:05 AM EDT) Sedimentation Rate 20(H) <20 mm/hr 2024 12:07 PM EDT [facility] Blood Venous blood specimen / Unknown Venipuncture / Unknown 06/15/2025 11:05 AM EDT 06/15/2025 11:06 AM EDT us Rosanna Cárdenas MD LAB BLOOD ORDERABLES Final Res ult [facility] [address] [place] [address] * (ABNORMAL) CBC and differential (06/15/2025 11:05 AM EDT) WBC Count 7.90 3.70 - 10.30 10*3/uL LAB HEMATOLOGY METHOD 06/15/2025 11:55 AM EDT [facility] RBC Count 4.66 4.60 - 6.10 10*6/uL LAB HEMATOLOGY METHOD 06/15/2025 11:55 AM EDT [facility] HGB 14.3 13.7 - 17.5 g/dL LAB HEMATOLOGY METHOD 06/15/2025 11:55 AM EDT [facility] HCT 42.5 40.0 - 51.0 % LAB HEMATOLOGY METHOD 06/15/2025 11:55 AM EDT [facility] Platelet Count 321 155 - 369 10*3/uL LAB HEMATOLOGY METHOD 06/15/2025 11:55 AM EDT [facility] MCV 91 79 - 98 fL LAB HEMATOLOGY METHOD 06/15/2025 11:55 AM EDT [facility] MCH 30.7 26.0 - 32.0 pg LAB HEMATOLOGY METHOD 06/15/2025 11:55 AM EDT [facility] MCHC 33.6 30.7 - 35.5 g/dL LAB HEMATOLOGY METHOD 06/15/2025 11:55 AM EDT [facility] RDW 14.2 11.5 - 14.5 % LAB HEMATOLOGY METHOD 06/15/2025 11:55 AM EDT [facility] MPV 9.3 8.8 - 12.5 fL LAB HEMATOLOGY METHOD 06/15/2025 11:55 AM EDT [facility] nRBC 0.0 <=0.0 per 100 WBCs LAB HEMATOLOGY METHOD 06/15/2025 11:55 AM EDT [facility] Differential Type Automated LAB HEMATOLOGY METHOD 06/15/2025 11:55 AM EDT [facility] Neutrophils % 60 % LAB HEMATOLOGY METHOD 06/15/2025 11:55 AM EDT [facility] Lymphocytes % 21 % LAB HEMATOLOGY METHOD 06/15/2025 11:55 AM EDT [facility] Monocytes % 11 % LAB HEMATOLOGY METHOD 06/15/2025 11:55 AM EDT [facility] Eosinophils % 6 % LAB HEMATOLOGY METHOD 06/15/2025 11:55 AM EDT [facility] Basophils % 2 % LAB HEMATOLOGY METHOD 06/15/2025 11:55 AM EDT [facility] Immature Granulocytes % 0 % LAB HEMATOLOGY METHOD 06/15/2025 11:55 AM EDT [facility] Neutrophils Absolute 4.79 1.60 - 6.10 10*3/uL LAB HEMATOLOGY METHOD 06/15/2025 11:55 AM EDT [facility] Lymphocytes Absolute 1.66 1.20 - 3.90 10*3/uL LAB HEMATOLOGY METHOD 06/15/2025 11:55 AM EDT [facility] Monocytes Absolute 0.87 0.30 - 0.90 10*3/uL LAB HEMATOLOGY METHOD 06/15/2025 11:55 AM EDT [facility] Eosinophils Absolute 0.44 0.00 - 0.50 10*3/uL LAB HEMATOLOGY METHOD 06/15/2025 11:55 AM EDT [facility] Basophils Absolute 0.12(H) 0.00 - 0.10 10*3/uL LAB HEMATOLOGY METHOD 06/15/2025 11:55 AM EDT [facility] Immature Granulocytes Absolute 0.02 0.00 - 0.06 10*3/uL LAB HEMATOLOGY METHOD 06/15/2025 11:55 AM EDT [facility] Blood Venous blood specimen / Unknown Venipuncture / Unknown 06/15/2025 11:05 AM EDT 06/15/2025 11:06 AM EDT Narrative [facility] - 06/15/2025 11:55 AM EDT Therapeutic decision making should be based on absolute values, rather than percentages. us Rosanna Cárdenas MD LAB BLOOD ORDERABLES Final Res ult Performing Organization Address [facility] Co de Phone Number [facility] [address] [place] [address] * C-reactive protein (06/15/2025 11:05 AM EDT) CRP, Plasma 4.4 <=8.0 mg/L 06/15/2025 12:31 PM EDT [facility] Blood Venous blood specimen / Unknown Venipuncture / Unknown 06/15/2025 11:05 AM EDT 06/15/2025 11:06 AM EDT Narrative [facility] - 06/15/2025 12:31 PM EDT This CRP test is appropriate for assessment of infection, systemic inflammation and/or tissue injury. To assess cardiovascular disease risk order high sensitivity CRP (CRPH). us Rosanna Cárdenas MD LAB BLOOD ORDERABLES Final Res ult [facility] [address] [place] [address] * Comprehensive metabolic panel (06/15/2025 11:05 AM EDT) Glucose, Plasma 90 74 - 99 mg/dL 06/15/2025 12:31 PM EDT [facility] BUN, Plasma 9 8 - 23 mg/dL 06/15/2025 12:31 PM EDT [facility] Creatinine, Plasma 0.78 0.70 - 1.20 mg/dL 06/15/2025 12:31 PM EDT [facility] BUN/Creatinine Ratio 12 06/15/2025 12:31 PM EDT [facility] Sodium, Plasma 136 136 - 145 mmol/L 06/15/2025 12:31 PM EDT [facility] Potassium, Plasma 4.6 3.6 - 4.9 mmol/L 06/15/2025 12:31 PM EDT [facility] Chloride, Plasma 99 97 - 107 mmol/L 06/15/2025 12:31 PM EDT [facility] CO2, Plasma 26 22 - 29 mmol/L 06/15/2025 12:31 PM EDT [facility] Anion Gap 11 6 - 16 mmol/L 06/15/2025 12:31 PM EDT [facility] Total Calcium, Plasma 9.9 8.9 - 10.2 mg/dL 06/15/2025 12:31 PM EDT [facility] Total Protein 7.0 6.3 - 7.9 g/dL 06/15/2025 12:31 PM EDT [facility] Albumin, Plasma 4.1 3.5 - 5.2 g/dL 06/15/2025 12:31 PM EDT [facility] AST, Plasma 28 10 - 50 U/L 06/15/2025 12:31 PM EDT [facility] ALT, Plasma 25 10 - 50 U/L 06/15/2025 12:31 PM EDT [facility] Alkaline Phosphatase, Plasma 99 40 - 115 U/L 06/15/2025 12:31 PM EDT [facility] Total Bilirubin, Plasma 0.5 0.2 - 1.1 mg/dL 06/15/2025 12:31 PM EDT [facility] eGFRcr 94.8 mL/min/1.7 3m*2 06/15/2025 12:31 PM EDT [facility] Comment:Reported eGFRcr in m L/min/1.73m2 is based the CKD-EPI 2020 equation that does not use a race coefficient. Blood Venous blood specimen / Unknown Venipuncture / Unknown 06/15/2025 11:05 AM EDT 06/15/2025 11:06 AM EDT us Rosanna Cárdenas MD LAB BLOOD ORDERABLES Final Res ult [facility] [address] [place] [address] * Acute Hepatitis Panel (05/29/2022 10:58 AM EDT) Hepatitis B Surf Antigen Negative Negative 05/29/2022 12:53 PM EDT [facility] Hepatitis C Antibody Negative Negative 05/29/2022 12:53 PM EDT [facility] Hepatitis A Antibody IgM Negative Negative 05/29/2022 12:53 PM EDT [facility] Hepatitis B Core Antibody IgM Negative Negative 05/29/2022 12:53 PM EDT [facility] Blood Venous blood specimen / Unknown Venipuncture / Unknown 05/29/2022 10:58 AM EDT 05/29/2022 10:58 AM EDT us Angeli GORMAN LAB BLOOD ORDERABLES Final Resul t Performing Organization Address City/[facility]/ZIP Co de Phone Number [facility] [address] [place] [address] from Last 3 Months or Most Recently Relevant to Health Maintenance Insurance Care Teams [employer] Examiner Relationship Specialty Start Date End Date Иван Gonzales MD [address] [place] [address] [facility] - General 02/22/21
--- OUTSIDE RECORDS SUMMARY | 2025-09-11 09:47 | XMS_ITS | Encounter Summary ---
Author Organization Healthcare Address [address] [place] [address] Care Team Providers Care Gang Worker Name Role Phone Иван Gonzales MD Primary Care Provider + [phone] Encounter Details Date Type Department Care Team ([facility] st Contact Info) Description 06/19/2025 Results Follow-Up Professional [facility] E [facility] [address] [place] [address] Rosanna Cárdenas MD [facility] [address] [place] [address] Social History Tobacco Use Types [...] Description 09/14/2025 11:00 AM EST Office Visit [facility] [address] [place] [address] Rosanna Cárdenas MD [address] [place] [id number] documented as of this encounter Visit Diagnoses Diagnosis Rheumatoid arthritis involving multiple sites with positive rheumatoid factor ([facility])- Primary documented in this encounter Additional Health Concerns Assessment Noted Time A fall risk assessment has been complete d for the patient 06/15/2025 9:56 AM EDT A Body Mass Index follow-up plan has been documented for the patient 06/15/2025 10:32 AM EDT documented as of this encounter Care Teams Gang Worker Relationship Specialty Start Date End Date Иван Gonzales MD [address] [place] [address] PCP - General 02/22/21 documented as of this encounter
[2025-09-11] MEDS: ACETAMINOPHEN 325MG TAB 650 MG (09:50)
[2025-09-11] MEDS: METHYLPREDNISOLONE SOD SUCC 125MG VIAL 125 MG (09:50)
== END 2025-09-11 23:59 | disposition home or self-care (01) ==
LOC: INF 09:45
PROVIDERS: PCP Nurse Practitioner Family; Visit Provider Internal Medicine Rheumatology
DX: M05.79 Rheumatoid arthritis with rheumatoid factor of multiple sites without organ or systems involvement (principal)
CPT/HCPCS: 96413; 96415; J2919; J7040; J9312